=== PATIENT | female | born 1975 | race Two or more races ===

== ENCOUNTER 2022-07-07 12:12 | Inpatient (IN) | payer MEDICAID ==
[~2022-07-07] VITALS: Ht 167.6 cm; Wt 90.4 kg
[2022-07-07 12:42] LABS: Basophils # (auto) 0.1 10 ^3/uL (0-0.2); Eosinophils # (auto) 0.1 10 ^3/uL (0-0.8); Monocytes # (auto) 0.5 10 ^3/uL (0-1.3); Neutrophils # (auto) 6.1 10 ^3/uL (1.6-8.6); Nucleated Red Blood Cells % 0.2 %
[2022-07-07 12:43] LABS: Basophils % (auto) 1.1 % (0.0-2.0); Eosinophils % (auto) 0.6 % (0.0-7.0); Hematocrit 19.8 % (36.0-46.0); Lymphocytes # (auto) 2.4 10 ^3/uL (0.4-5.4); Lymphocytes % (auto) 26.1 % (10.0-50.0); Mean Corpuscular Hgb Conc. 27.7 g/dL (32.0-36.0); Mean Corpuscular Volume 57.7 fL (80.0-100.0); Monocytes % (auto) 5.3 % (0.0-12.0); Neutrophils % (auto) 66.9 % (37.0-80.0); Red Blood Cells 3.44 10^6/uL (4.0-5.20); White Blood Cell 9.2 10^3/uL (4.4-10.8)
[2022-07-07 12:56] LABS: Albumin 3.1 g/dL (3.4-5.0); BUN/Creatinine Ratio 16.4; Calcium 8.6 mg/dL (8.5-10.1); Potassium 4.3 mmol/L (3.5-5.1)
[2022-07-07 12:59] LABS: Bilirubin, Total 0.6 mg/dL (0.2-1.0)
[2022-07-07 13:33] LABS: Hemoglobin 5.5 g/dL (12.2-16.2)
[2022-07-07 13:34] LABS: Red Cell Distribution Width 21.3 % (11.8-14.3)
[2022-07-07] MEDS ORDERED: MORPHINE SULFATE INJ 2 MG/ml SYRG IV PRN (14:45)
[2022-07-07] MEDS ORDERED: ACETAMINOPHEN 325 MG TAB PO PRN (14:45)
[2022-07-07] MEDS ORDERED: PANTOPRAZOLE 40 MG/10 ML VIAL INJ IV ONE (14:45)
[2022-07-07] MEDS ORDERED: DEXTROSE (50%) 50ML SYRG IV PRN (14:45)
[2022-07-07] MEDS ORDERED: NITROGLYCERIN 0.4 MG SL TAB SL PRN (14:45)
[2022-07-07 15:25] LABS: Folate (Folic Acid) 22.94 ng/mL (5.38-24)
[2022-07-07] MEDS: SODIUM CHLORIDE 0.9% 1,000 ML IV SCH (15:59)
[2022-07-07] MEDS: InsuLIN REG 1unit/0.01ml Soln (100units/ml) SC SCH (18:01)
[2022-07-07] MEDS: ACCU-CHEK COMFORT CURVE STRIP VI SCH (18:02)
[2022-07-08] VITALS (8 sets, daily range): BP systolic 109–133; BP diastolic 48–84
[2022-07-08] MEDS: ACCU-CHEK COMFORT CURVE STRIP VI SCH ×5 (03:13→22:58)
[2022-07-08] MEDS: InsuLIN REG 1unit/0.01ml Soln (100units/ml) SC SCH ×5 (03:13→22:57)
[2022-07-08] MEDS ORDERED: ENOXAPARIN SOD 40 MG/0.4 ML SYRINGE SC SCH (10:00)
[2022-07-08] MEDS: SODIUM CHLORIDE 0.9% 1,000 ML IV SCH (10:41)
[2022-07-08] MEDS: PANTOPRAZOLE 40 MG/10 ML VIAL INJ IV SCH (12:48)
[2022-07-08 15:35] LABS: Basophils # (auto) 0.1 10 ^3/uL (0-0.2); Eosinophils # (auto) 0.1 10 ^3/uL (0-0.8); Hemoglobin 7.7 g/dL (12.2-16.2); Lymphocytes # (auto) 2.2 10 ^3/uL (0.4-5.4)
[2022-07-08 15:38] LABS: Basophils % (auto) 1.1 % (0.0-2.0); Hematocrit 26.2 % (36.0-46.0); Lymphocytes % (auto) 28.3 % (10.0-50.0); Mean Corpuscular Hemoglobin 18.7 pg (28.0-32.0); Mean Corpuscular Hgb Conc. 29.4 g/dL (32.0-36.0); Mean Corpuscular Volume 63.5 fL (80.0-100.0); Monocytes # (auto) 0.6 10 ^3/uL (0-1.3); Monocytes % (auto) 7.2 % (0.0-12.0); Neutrophils # (auto) 4.9 10 ^3/uL (1.6-8.6); Neutrophils % (auto) 62.4 % (37.0-80.0); Nucleated Red Blood Cells % 0.2 %; Red Blood Cells 4.12 10^6/uL (4.0-5.20); White Blood Cell 7.9 10^3/uL (4.4-10.8)
[2022-07-08 15:47] LABS: Red Cell Distribution Width 29.1 % (11.8-14.3)
[2022-07-08 15:52] LABS: Albumin 2.9 g/dL (3.4-5.0); Calcium 8.7 mg/dL (8.5-10.1); Potassium 4.2 mmol/L (3.5-5.1)
[2022-07-08 15:54] LABS: INR 0.96 (0.9-1.15); Partial Thromboplastin Time 23.8 sec (24.6-33.4)
[2022-07-08 15:55] LABS: BUN/Creatinine Ratio 13.5; Bilirubin, Total 0.8 mg/dL (0.2-1.0); Total Protein 6.9 g/dL (6.4-8.2)
[2022-07-08 18:04] LABS: % Iron Saturation 3.3 % (15-50)
[2022-07-08 18:10] LABS: Triglycerides 139 mg/dL (< 150)
[2022-07-08 18:17] LABS: Cholesterol 145 mg/dL (< 200); HDL Cholesterol 30 mg/dL (40-59); LDL Cholesterol 98 mg/dL (< 100)
[2022-07-09] MEDS: SODIUM CHLORIDE 0.9% 1,000 ML IV SCH ×2 (00:24→00:25)
[2022-07-09] MEDS: InsuLIN REG 1unit/0.01ml Soln (100units/ml) SC SCH ×4 (06:45→21:24)
[2022-07-09] MEDS: ACCU-CHEK COMFORT CURVE STRIP VI SCH ×4 (07:02→21:23)
[2022-07-09] MEDS: PANTOPRAZOLE 40 MG/10 ML VIAL INJ IV SCH (10:00)
[2022-07-09] MEDS: SODIUM FERR GLUC 62.5MG/5ML 125 MG in SODIUM CHL 0.9% 100 ML IV SCH (12:00)
[2022-07-09] MEDS: METOCLOPRAMIDE HCL 5MG/ml INJ 2ml VIAL IV ONE ×2 (13:30→16:29)
[2022-07-09 16:37] VITALS: BP 133/85
[2022-07-09] MEDS ORDERED: LIDOCAINE VISCOUS 2% 15ML UD ONE (17:45)
[2022-07-09] MEDS: MIDAZOLAM HCL 2MG/2ML 2ml VIAL (1mg/ml) ONE ×2 (18:29→18:32)
[2022-07-09] MEDS: fentaNYL CITRATE 100 MCG/2 ML VL ONE ×2 (18:29→18:32)
[2022-07-09] MEDS: diphenhdrAMINE HCL 50 MG/1 ML VL ONE ×2 (18:29→18:30)
[2022-07-09 20:00] VITALS: BP 134/80
[2022-07-09 22:00] VITALS: BP 134/80
[2022-07-10 05:00] VITALS: BP 120/72
[2022-07-10] MEDS: ACCU-CHEK COMFORT CURVE STRIP VI SCH ×2 (06:14→11:32)
[2022-07-10] MEDS: InsuLIN REG 1unit/0.01ml Soln (100units/ml) SC SCH ×2 (06:15→11:30)
[2022-07-10 08:00] VITALS: BP 134/80
[2022-07-10 09:00] VITALS: BP 140/81
[2022-07-10] MEDS: SODIUM CHLORIDE 0.9% 1,000 ML IV SCH (09:25)
[2022-07-10] MEDS ORDERED: FERR-7 PO (09:55)
[2022-07-10] MEDS ORDERED: PANT40T PO (09:55)
[2022-07-10] MEDS: PANTOPRAZOLE 40 MG/10 ML VIAL INJ IV SCH (10:43)
[2022-07-10 11:56] LABS: Basophils # (auto) 0.1 10 ^3/uL (0-0.2); Eosinophils # (auto) 0.2 10 ^3/uL (0-0.8); Hemoglobin 8.1 g/dL (12.2-16.2); Monocytes # (auto) 0.5 10 ^3/uL (0-1.3); Nucleated Red Blood Cells % 0.1 %; White Blood Cell 8.8 10^3/uL (4.4-10.8)
[2022-07-10 12:00] LABS: Basophils % (auto) 1.2 % (0.0-2.0); Eosinophils % (auto) 2.4 % (0.0-7.0); Hematocrit 28.7 % (36.0-46.0); Lymphocytes # (auto) 2.3 10 ^3/uL (0.4-5.4); Lymphocytes % (auto) 25.9 % (10.0-50.0); Mean Corpuscular Hgb Conc. 28.3 g/dL (32.0-36.0); Mean Corpuscular Volume 63.5 fL (80.0-100.0); Monocytes % (auto) 6.1 % (0.0-12.0); Neutrophils # (auto) 5.7 10 ^3/uL (1.6-8.6); Neutrophils % (auto) 64.4 % (37.0-80.0); Red Blood Cells 4.52 10^6/uL (4.0-5.20)
[2022-07-10] MEDS: SODIUM FERR GLUC 62.5MG/5ML 125 MG in SODIUM CHL 0.9% 100 ML IV SCH (12:00)
[2022-07-10 12:18] VITALS: BP 141/91
[2022-07-10 12:28] LABS: Red Cell Distribution Width 29.8 % (11.8-14.3)
== END 2022-07-10 12:48 | disposition home or self-care (01) | DRG 198 ==
LOC: ER 12:12 → TELE 14:44 → TELE-WESTW 07-09 11:00
PROVIDERS: ADMIT Nurse Practitioner Family; ATTEND Family Medicine
PROC: 30233N1 Transfusion of Nonautologous Red Blood Cells into Peripheral Vein, Percutaneous Approach (ICD-10-PCS; principal; 2022-07-08)
PROC: 0DB98ZX Excision of Duodenum, Via Natural or Artificial Opening Endoscopic, Diagnostic (ICD-10-PCS; 2022-07-09)
PROC: 0DB68ZX Excision of Stomach, Via Natural or Artificial Opening Endoscopic, Diagnostic (ICD-10-PCS; 2022-07-09)
DX: I24.8 Other forms of acute ischemic heart disease (principal); E46 Unspecified protein-calorie malnutrition; D50.9 Iron deficiency anemia, unspecified; E11.9 Type 2 diabetes mellitus without complications; E66.01 Morbid (severe) obesity due to excess calories; K29.70 Gastritis, unspecified, without bleeding; R07.89 Other chest pain; K44.9 Diaphragmatic hernia without obstruction or gangrene; Z90.49 Acquired absence of other specified parts of digestive tract; Z68.32 Body mass index [BMI] 32.0-32.9, adult; Z79.84 Long term (current) use of oral hypoglycemic drugs
CPT/HCPCS: 36415; 71045; 80053; 80061; 82607; 82746; 82962; 83036; 83540; 83550; 83690; 83880; 84443; 84484; 84702; 85025; 85379; 85610; 85730; 86850; 86900; 86901; 86920; 87426; 93005; 93306; 96361; 96374; C9113; G0378; J1815; J2250

== ENCOUNTER 2024-08-31 00:10 | Inpatient (IN) | payer MEDICAID, OTHER ==
[2024-08-31] VITALS (15 sets, daily range): BP systolic 117–148; BP diastolic 75–95; PULSE 90–105; RESP 16–28; TEMP 97.4–98.6; O2SAT 92–97
[~2024-08-31] VITALS: Ht 170.2 cm; Wt 94.4 kg
[~2024-08-31 00:10] MED LIST: FERR-7 PO; PANT40T PO
[2024-08-31 00:58] LABS: Basophils # (auto) 0.1 10 ^3/uL (0-0.2); Basophils % (auto) 0.6 % (0.0-2.0); Eosinophils # (auto) 0.1 10 ^3/uL (0-0.8); Eosinophils % (auto) 0.6 % (0.0-7.0); Hematocrit 41.6 % (36.0-46.0); Hemoglobin 13.9 g/dL (12.2-16.2); Lymphocytes # (auto) 3.1 10 ^3/uL (0.4-5.4); Lymphocytes % (auto) 22.6 % (10.0-50.0); Mean Corpuscular Hemoglobin 29.1 pg (28.0-32.0); Mean Corpuscular Hgb Conc. 33.5 g/dL (32.0-36.0); Monocytes # (auto) 0.9 10 ^3/uL (0-1.3); Monocytes % (auto) 6.9 % (0.0-12.0); Neutrophils # (auto) 9.4 10 ^3/uL (1.6-8.6); Neutrophils % (auto) 69.3 % (37.0-80.0); Nucleated Red Blood Cells % 0.1 %; Platelet Count (auto) 223 10^3/uL (140-450); Red Blood Cells 4.78 10^6/uL (4.0-5.20); Red Cell Distribution Width 14.3 % (11.8-14.3); White Blood Cell 13.6 10^3/uL (4.4-10.8)
--- NOTE | 2024-08-31 01:03 | ED.PDOC ---
HPI Comments 49-year-old female came to the emergency room via EMS for chest pains. Patient has history of hypertension and diabetes, states for the past 2 days, she has been having intermittent episodes of substernal chest pains, burning, non radiating, aggravated by movements. Blood sugar on scene was 318, with a blood pressure of 169/113 mmHg. Denies any shortness of breath. Patient was given 0.8 Nitroglycerin and 324 aspirin while en route to the ER. Upon arrival, minimal chest pains were noted. Chief Complaint: Chest Pain Time Seen by MD: 01:03 Reviewed Notes: Nurses Notes Allergies: Coded Allergies: Penicillins (Verified Allergy, Unknown, 08/31/24) Home Meds Reported Medications Sitagliptin-Metformin Hcl (JANUMET XR) 1 Tab Tab, 1 TAB PO, TAB 08/31/24 Information Source: Patient Mode of Arrival: EMS Severity: Moderate Timing: Hours Review of Systems REVIEW OF SYSTEMS: No fever, no chills, or fatigue HEENT: No sore throat, no earache, no congestion, no neck pain. Cardiac: (+) chest pain. No palpitations. Lungs: No shortness of breath, no cough. GI: No nausea, no vomiting, no diarrhea, no constipation, no abdominal pain : No dysuria, frequency, or urgency. No hematuria. Musculoskeletal: No joint pain , no joint swelling, no extremity edema. Skin: No rash, no itching. Neuro: No headache, no dizziness, no weakness Vital Signs Vital Signs Date Time Temp Pulse Resp B/P (MAP) Pulse Ox O2 Delivery O2 Flow Rate FiO2 08/31/24 02:00 99 27 134/83 08/31/24 01:26 98.4 93 98.4 08/31/24 01:26 Room Air* 0 21 Physical Exam General: Awake, alert and oriented. No acute distress. Skin: Skin in warm, dry and intact. Appropriate color for ethnicity. Nailbeds pink with no cyanosis. HEENT: The head is normocephalic and atraumatic. Conjunctivae are clear without exudates or hemorrhage. Sclera is non-icteric. EOM are intact. No signs of nystagmus. Eyelids are normal in appearance without swelling or lesions. Oral mucosa is pink and moist Neck: The neck is supple with normal range of motion. No JVD. Cardiac: Heart rate and rhythm are normal. No murmurs, gallops, or rubs are auscultated. Respiratory: No signs of respiratory distress. Lung sounds are clear in all lobes bilaterally without rales, ronchi, or wheezes. Abdominal: Abdomen is soft, non-tender without distention. Bowel sounds are present and normoactive in all four quadrants. Extremities: Upper and lower extremities are atraumatic in appearance without deformity or edema. Neurological: The patient is awake, alert and oriented to person, place, and time with normal speech. Speech is clear. There is no facial asymmetry. Psychiatric: Appropriate mood and affect. Good judgement and insight. No visual or auditory hallucinations. Past Medical History PAST MEDICAL HISTORY: DM, HTN Surgical History: Denies all surgeries BACON SLICER History: Denies all BACON SLICER Hx Family History Family History: Reviewed,noncontributory to illness Social History Smoker: Non-Smoker Alcohol: Denies ETOH Use Drugs: Denies Drug Use Lives In: Home Was a procedure done? Was a procedure done?: No CP Differential Dx Differential Diagnosis: Angina, Anxiety / Panic Attack, Electrolyte Disorder, Pacemaker Malfunction Differential Diagnosis: Angina, Chest Wall Pain, Costochondritis, Esophageal reflux/spasm, Gastritis, Myocardial Infarction X-Ray, Labs, Meds, VS Vital Signs Date Time Temp Pulse Resp B/P (MAP) Pulse Ox O2 Delivery O2 Flow Rate FiO2 08/31/24 02:00 99 27 134/83 08/31/24 01:35 98 23 128/85 08/31/24 01:26 98.4 97 28 128/85 (99) 93 98.4 08/31/24 01:26 97 08/31/24 01:26 97 28 93 Room Air* 0 21 08/31/24 01:13 101 08/31/24 01:11 100 16 115/83 (94) 95 08/31/24 00:14 108 08/31/24 00:10 98.5 113 16 130/87 (101) 95 Lab Test 08/31/24 01:17 08/31/24 00:30 Range/Units Troponin I High Sensitivity 1395 *H 1405 *H </=34 ng/L Triglycerides Level 232 H < 150 mg/dL Cholesterol Level 151 < 200 mg/dL LDL Cholesterol 92 < 100 mg/dL HDL Cholesterol 27 L 40-59 mg/dL White Blood Count 13.6 H 4.4-10.8 10^3/uL Red Blood Count 4.78 4.0-5.20 10^6/uL Hemoglobin 13.9 12.2-16.2 g/dL Hematocrit 41.6 36.0-46.0 % Mean Corpuscular Volume 87.0 80.0-100.0 fL Mean Corpuscular Hemoglobin 29.1 28.0-32.0 pg Mean Corpuscular Hemoglobin Concent 33.5 32.0-36.0 g/dL Red Cell Distribution Width 14.3 11.8-14.3 % Platelet Count 223 140-450 10^3/uL Mean Platelet Volume 11.1 H 6.9-10.8 fL Neutrophils (%) (Auto) 69.3 37.0-80.0 % Lymphocytes (%) (Auto) 22.6 10.0-50.0 % Monocytes (%) (Auto) 6.9 0.0-12.0 % Eosinophils (%) (Auto) 0.6 0.0-7.0 % Basophils (%) (Auto) 0.6 0.0-2.0 % Neutrophils # (Auto) 9.4 H 1.6-8.6 10 ^3/uL Lymphocytes # (Auto) 3.1 0.4-5.4 10 ^3/uL Monocytes # (Auto) 0.9 0-1.3 10 ^3/uL Eosinophils # (Auto) 0.1 0-0.8 10 ^3/uL Basophils # (Auto) 0.1 0-0.2 10 ^3/uL Nucleated Red Blood Cells 0.1 % Prothrombin Time 10.3 9.3-11.8 sec Prothrombin Time INR 0.97 0.9-1.15 Activated Partial Thromboplast Time 27.1 24.5-34.5 SEC Sodium Level 136 136-145 mmol/L Potassium Level 4.1 3.5-5.1 mmol/L Chloride Level 105 98-107 mmol/L Carbon Dioxide Level 20 20-31 mmol/L Anion Gap 11 5-15 Blood Urea Nitrogen 12 9-23 mg/dL Creatinine 0.64 0.550-1.02 mg/dL Glomerular Filtration Rate Calc 110 >90 mL/min BUN/Creatinine Ratio 18.8 10.0-20.0 Serum Glucose 262 H 74-106 mg/dL Hemoglobin A1c 9.1 H <5.7 % A1C Calcium Level 9.8 8.7-10.4 mg/dL Magnesium Level 1.9 1.6-2.6 mg/dL Total Bilirubin 0.6 0.2-1.0 mg/dL Aspartate Amino Transferase (AST) 22 13-40 U/L Alanine Aminotransferase (ALT) 22 7-40 U/L Alkaline Phosphatase 95 46-116 U/L B-Type Natriuretic Peptide 115.37 0-100 pg/mL Total Protein 7.3 5.7-8.2 g/dL Albumin 4.6 3.2-4.8 g/dL Thyroid Stimulating Hormone (TSH) 2.43 0.55-4.78 uIU/mL Beta HCG, Quantitative 1.8 1.5-4.2 mIU/mL Current Medications Medications (Trade) Dose Ordered Sig/Michael Route Start Time Stop Time Status Last Admin Morphine Sulfate 2 mg ONCE ONCE IV 08/31/24 01:30 08/31/24 01:31 DC 08/31/24 01:35 Sodium Chloride 1,000 ml @ 1,000 mls/hr Q1H ONCE IV 08/31/24 01:30 08/31/24 02:29 DC 08/31/24 01:33 Time of 1ST Reevaluation: 00:56 Reevaluation 1ST: Unchanged Patient Education/Counseling: Diagnosis, Treatment Family Education/Counseling: No Family Present Departure 1 Departure Time of Disposition: 18:46 Impression: Primary Impression: NSTEMI (non-ST elevated myocardial infarction) Disposition: 09 ADMITTED INPATIENT Condition: Stable Comments 49-year-old female with NSTEMI. Patient is stabilized in the emergency department, heparin bolus initiated. Patient admitted for further treatment, evaluation and monitoring. Critical Care Note Critical Care Time?: Yes (35 min-critical care time only) Critical care comment: Active chest pain Stability Stability form required: No Heart Score Heart Score: Heart Score Response (Comments) Value History Slightly Suspicious 0 EKG Normal 0 Age 45-64 1 Risk Factors 1 or 2 risk factors 1 Troponin Normal limit 0 Total 2 I personally scribed for ROBBIE BOX MD ([email or web address]) on 08/31/24 at 01:03. Electronically submitted by [employer] ([facility]). I personally scribed for ROBBIE BOX MD ([email or web address]) on 08/31/24 at 01:05. Electronically submitted by [employer] ([email or web address]). ROBBIE BOX MD Aug 31, 2024 01:03
[2024-08-31 01:13] LABS: Alanine Aminotransferase 22 U/L (7-40); Albumin 4.6 g/dL (3.2-4.8); Alkaline Phosphatase 95 U/L (46-116); Anion Gap 11 (5-15); Aspartate Aminotransferase 22 U/L (13-40); BUN/Creatinine Ratio 18.8 (10.0-20.0); Bilirubin, Total 0.6 mg/dL (0.2-1.0); Blood Urea Nitrogen 12 mg/dL (9-23); Calcium 9.8 mg/dL (8.7-10.4); Carbon Dioxide 20 mmol/L (20-31); Chloride 105 mmol/L (98-107); Potassium 4.1 mmol/L (3.5-5.1); Total Protein 7.3 g/dL (5.7-8.2)
[2024-08-31 01:17] LABS: Glucose 262 mg/dL (74-106); Sodium 136 mmol/L (136-145)
[2024-08-31] MEDS: SODIUM CHLORIDE 0.9% 1,000 ML IV ONE (01:33)
[2024-08-31] MEDS: MORPHINE SULFATE INJ 2 MG/ml SYRG IV ONE (01:35)
[2024-08-31 01:43] LABS: INR 0.97 (0.9-1.15); Prothrombin Time 10.3 sec (9.3-11.8)
--- NOTE | 2024-08-31 01:52 | DVH ---
CHEST RADIOGRAPH Indication: cp Technique: Single frontal view of the chest was obtained COMPARISON: None FINDINGS: Lines and Tubes: None Lungs: Clear Pleura: No effusion. No pneumothorax. Cardiomediastinal contours: Unremarkable Bones: Unremarkable IMPRESSION: No abnormality demonstrated.
[2024-08-31] MEDS ORDERED: METOPROLOL SUCCINATE XL 50 MG TAB PO ONE (02:30)
[2024-08-31] MEDS ORDERED: NITROGLYCERIN 0.4 MG SL TAB SL PRN (02:30)
[2024-08-31] MEDS ORDERED: MORPHINE SULFATE INJ 2 MG/ml SYRG IV PRN (02:30)
--- NOTE | 2024-08-31 02:44 | DVHHPRES ---
History of Present Illness Resident Creating Document: CECELIA CHANDLER RESDIENT History of Present Illness This is a 49-year-old obese female with past medical history of diabetes came to the hospital due to chest pain functional class 3 since 2 days. Per patient she has constant and localized central chest pain, pressure-like, 8/10 in intensity, worsen with physical activity, improves with resting but do not relieves completely. She also reports shortness of breaths. She denies fever, cough, nausea, vomiting, abdominal pain, dysuria, diarrhea, constipation or any recent sick contact. PMHx: Diabetes and history of anemia (iron-deficiency type) PSHx: Appendectomy Family history: Significant for premature coronary artery disease in dad and grandmother Social history: Lives with the family at home, denies smoking or any other drug use. Has secondhand smoking exposure (hausband and dad smokes cigarettes). Home medication: Lisinopril 2.5 mg, Janumet (sitagliptin/metformin) Allergic history: Penicillin Review of Systems Review of Systems General: patient denies fever, fatigue, weaknes, sweating, any recent changes in appetite and weight HEENT: No headaches, visiual changes, hearing loss, tinnitus, nasal congestion and discharge, and sore throat. Cardiovascular: Reports chest pain Respiratory: Reports shortness of breaths Gastrointestinal: Denies nausea, vomiting, dysphagia, odynophagia, heartburn, abdominal pain, flatulence, bloating, diarrhea, constipation, change in stool, or blood in stool. Genitourinary: No dysuria, hematuria, discharge, frequency, urgency, nocturia, incontinence, and urinary retention. Endocrine: No heat or cold intolerance, polydipsia, polyuria, and polyphagia. Neurological: No dizziness, extremity weakness and numbness, tremors, gait disturbance, seizures, and memory impairment. Psychiatric: Denies depression, anxiety,or insomnia. Musculoskeletal: Denies neck pain, stiffness and swelling, back pain, muscle weakness, joint pain, stiffness, swelling, or limited range of motion. Skin: No rashes, itching, skin lesion, changes in hair, nail, skin texture and breast. Hematologic/Lymphatic: Denies easy bruising, bleeding tendencies, or lymph node enlargement. Allergies: Coded Allergies: Penicillins (Verified Allergy, Unknown, 08/31/24) Medications Current Medications Medications Dose Ordered Sig/Michael Route Start Time Stop Time Status Last Admin Dose Admin Sodium Chloride 10 ml Q8HR IV 08/31/24 06:00 Nitroglycerin 0.4 mg Q5MINP PRN SL 08/31/24 02:30 UNV Morphine Sulfate 2 mg Q30M PRN IV 08/31/24 02:30 UNV Aspirin 81 mg DAILY PO 08/31/24 10:00 UNV Metoprolol Succinate 50 mg DAILY PO 08/31/24 10:00 UNV Lisinopril 2.5 mg DAILY PO 08/31/24 10:00 UNV Pantoprazole Sodium 40 mg DAILY IV 09/01/24 10:00 UNV Heparin Sodium/ Dextrose 250 ml @ 10.614 mls/ hr [id number] IV 08/31/24 02:30 UNV Exam Vital Signs Vital Signs Date Time Temp Pulse Resp B/P (MAP) Pulse Ox O2 Delivery O2 Flow Rate FiO2 08/31/24 02:00 99 27 134/83 08/31/24 01:26 98.4 93 98.4 08/31/24 01:26 Room Air* 0 21 Exam General Appearance: Alert, Oriented X3, Cooperative, No acute distress HEENT: Atraumatic, PERRLA, EOMI, Mucous membrane moist/pink Respiratory: Clear to auscultation, Normal air movement Cardiovascular: Regular rate, Normal S1, Normal S2, No murmurs, no chest wall tenderness Abdominal: Normal bowel sounds, Soft, No tenderness, No hepatospenomegaly, No masses Extremities: No clubbing, No cyanosis, No edema, Normal pulses, No tenderness/swelling Skin: No rashes, No breakdown, No significant lesion Neuro: Normal gait, Normal speech, Strength at 5/5 X4 ext, Normal tone, Sensation intact, Cranial nerves 3-12 NL, Reflexes 2+ Psych/Mental Status: Mental status NL, Mood NL Labs/Xrays Labs Test 08/31/24 01:17 08/31/24 00:30 Range/Units Troponin I High Sensitivity 1395 *H </=34 ng/L White Blood Count 13.6 H 4.4-10.8 10^3/uL Red Blood Count 4.78 4.0-5.20 10^6/uL Hemoglobin 13.9 12.2-16.2 g/dL Hematocrit 41.6 36.0-46.0 % Mean Corpuscular Volume 87.0 80.0-100.0 fL Mean Corpuscular Hemoglobin 29.1 28.0-32.0 pg Mean Corpuscular Hemoglobin Concent 33.5 32.0-36.0 g/dL Red Cell Distribution Width 14.3 11.8-14.3 % Platelet Count 223 140-450 10^3/uL Mean Platelet Volume 11.1 H 6.9-10.8 fL Neutrophils (%) (Auto) 69.3 37.0-80.0 % Lymphocytes (%) (Auto) 22.6 10.0-50.0 % Monocytes (%) (Auto) 6.9 0.0-12.0 % Eosinophils (%) (Auto) 0.6 0.0-7.0 % Basophils (%) (Auto) 0.6 0.0-2.0 % Neutrophils # (Auto) 9.4 H 1.6-8.6 10 ^3/uL Lymphocytes # (Auto) 3.1 0.4-5.4 10 ^3/uL Monocytes # (Auto) 0.9 0-1.3 10 ^3/uL Eosinophils # (Auto) 0.1 0-0.8 10 ^3/uL Basophils # (Auto) 0.1 0-0.2 10 ^3/uL Nucleated Red Blood Cells 0.1 % Prothrombin Time 10.3 9.3-11.8 sec Prothrombin Time INR 0.97 0.9-1.15 Activated Partial Thromboplast Time 27.1 24.5-34.5 SEC Sodium Level 136 136-145 mmol/L Potassium Level 4.1 3.5-5.1 mmol/L Chloride Level 105 98-107 mmol/L Carbon Dioxide Level 20 20-31 mmol/L Anion Gap 11 5-15 Blood Urea Nitrogen 12 9-23 mg/dL Creatinine 0.64 0.550-1.02 mg/dL Glomerular Filtration Rate Calc 110 >90 mL/min BUN/Creatinine Ratio 18.8 10.0-20.0 Serum Glucose 262 H 74-106 mg/dL Calcium Level 9.8 8.7-10.4 mg/dL Magnesium Level 1.9 1.6-2.6 mg/dL Total Bilirubin 0.6 0.2-1.0 mg/dL Aspartate Amino Transferase (AST) 22 13-40 U/L Alanine Aminotransferase (ALT) 22 7-40 U/L Alkaline Phosphatase 95 46-116 U/L B-Type Natriuretic Peptide 115.37 0-100 pg/mL Total Protein 7.3 5.7-8.2 g/dL Albumin 4.6 3.2-4.8 g/dL Assessment/Plan Assessment/Plan NSTEMI probable type 1 (OLIVIA: 2, LISA: 74) Diabetes type 2 SIRS positive LISA score 74 points, and OLIVIA score 2 points EKGs shows QS wave in inferior leads, not present on EKG from 2022 Echocardiogram Consult cardiology Aspirin Metoprolol Lisinopril Heparin drip Morphine Insulin, moderate SS Obesity Hypomagnesemia Premenopause Secondhand smoking History of iron deficiency anemia - Resolved DIET: NPO from midnight DVT PROPHYLAXIS: On heparin drip GI PROPHYLAXIS:: Protonix CODE STATUS: Goal of care discussed for more than 18 minutes, full code DISPOSITION: Telemetry Patient's status and paln discussed with the patient. Case discussed with Dr. Shanks. critical care time 90 mins Plan discussed with: Patient, Other (RN) My Orders Orders - CECELIA CHANDLER RESDIKATHY Procedure Category Date Status Time Admit ADMIT 08/31/24 Transmitted 02:20 Code Status CODE 08/31/24 Transmitted 02:20 Review Orders With [facility] 08/31/24 In Process Adm. 02:20 Notify Of Changes [facility] 08/31/24 In Process From Base 02:20 Advance Directive [facility] 08/31/24 In Process 02:20 Patient Condition ORDERS 08/31/24 Transmitted 02:20 Allergies [facility] 08/31/24 In Process 02:20 Nitroglycerin [facility] 08/31/24 Logged Sublingual (Ntrostat 02:30 Morphine Sulfate PHA 08/31/24 Logged Injection 02:30 Oxygen By Nasal RT 08/31/24 Transmitted Cannula 02:20 Stat Ekg For Chest [facility] 08/31/24 In Process Pain 02:20 Notify Of Changes [facility] 08/31/24 In Process From Base 02:20 Product Mgmt Dev Manager For [facility] 08/31/24 In Process 24 Hours 02:20 Emergency Dysrhythmia [facility] 08/31/24 In Process Protocol 02:20 Rhythm Strips Once [facility] 08/31/24 In Process Every Shift 02:20 Complete Blood Count LAB 08/31/24 Logged 02:20 Comprehensive LAB 08/31/24 Logged Metabolic Panel 02:20 Drug Screen LAB 08/31/24 Logged 02:20 Urine Dip ED NURSING 08/31/24 Transmitted * Cardiology Consult CONS 08/31/24 Transmitted 02:20 Thyroid Stimulating LAB 08/31/24 In Process Hormone 02:20 Hemoglobin A1c LAB 08/31/24 In Process 02:20 Lipid Panel LAB 08/31/24 Logged 02:20 Aspirin Tablet PHA 08/31/24 Logged 10:00 Metoprolol Xl PHA 08/31/24 Logged Succinate (Toprol Xl) 10:00 Metoprolol Xl PHA 08/31/24 Logged Succinate (Toprol Xl) 02:30 Lisinopril Tablet PHA 08/31/24 Logged (Zestril Tablet) 10:00 Lisinopril Tablet PHA 08/31/24 Logged (Zestril Tablet) 02:30 Pantoprazole PHA 09/01/24 Logged (Protonix) 10:00 Pantoprazole PHA 08/31/24 Logged (Protonix) 02:30 Platelet Monitoring RHONDA 08/31/24 In Process 02:20 Heparin Per RHONDA 08/31/24 In Process Standardized Proce 02:20 Discontinue All Im RHONDA 08/31/24 In Process Injections 02:20 Heparin Drip/D5w PHA 08/31/24 Logged 100units/Ml 02:30 Magnesium Valentin PHA 08/31/24 Transmitted 02:45 Date of Service: Aug 31, 2024 Billing Provider: TRICIA SHANKS MD Common Visit Codes: [id number] CARE 30-74 MIN, [id number] CARE-EACH +30MIN CECELIA CHANDLER RESDIENT Aug 31, 2024 02:44 MACEY SILVERIO RESIDENT Aug 31, 2024 03:28 TRICAI SHANKS MD Aug 31, 2024 17:08
[2024-08-31] MEDS ORDERED: DEXTROSE (50%) 50ML SYRG IV PRN (02:45)
[2024-08-31] MEDS: LISINOPRIL 5 MG TAB PO ONE (02:54)
[2024-08-31 02:56] LABS: LDL Cholesterol 92 mg/dL (< 100)
[2024-08-31 02:57] LABS: Cholesterol 151 mg/dL (< 200)
[2024-08-31] MEDS: PANTOPRAZOLE 40 MG/10 ML VIAL INJ IV ONE (03:04)
[2024-08-31] MEDS: MAGNESIUM SULFATE 1GM/100ML 100 ML IV ONE (03:05)
[2024-08-31 03:08] LABS: HDL Cholesterol 27 mg/dL (40-59); Triglycerides 232 mg/dL (< 150)
[2024-08-31] MEDS: METOPROLOL SUCCINATE XL 50 MG TAB PO ONE (03:22)
[2024-08-31] MEDS: HEPARIN SODIUM (PORCINE) 5000 UNITS/ML 1ML VIAL IV ONE ×2 (03:23→12:16)
[2024-08-31 04:01] LABS: Basophils # (auto) 0.1 10 ^3/uL (0-0.2); Basophils % (auto) 0.4 % (0.0-2.0); Eosinophils # (auto) 0.1 10 ^3/uL (0-0.8); Eosinophils % (auto) 0.7 % (0.0-7.0); Hematocrit 40.3 % (36.0-46.0); Hemoglobin 13.6 g/dL (12.2-16.2); Lymphocytes # (auto) 3.6 10 ^3/uL (0.4-5.4); Lymphocytes % (auto) 28.5 % (10.0-50.0); Mean Corpuscular Hemoglobin 29.3 pg (28.0-32.0); Mean Corpuscular Hgb Conc. 33.6 g/dL (32.0-36.0); Mean Corpuscular Volume 87.1 fL (80.0-100.0); Monocytes # (auto) 0.8 10 ^3/uL (0-1.3); Monocytes % (auto) 6.3 % (0.0-12.0); Neutrophils # (auto) 8.2 10 ^3/uL (1.6-8.6); Neutrophils % (auto) 64.1 % (37.0-80.0); Platelet Count (auto) 198 10^3/uL (140-450); Red Blood Cells 4.63 10^6/uL (4.0-5.20); Red Cell Distribution Width 14.6 % (11.8-14.3); White Blood Cell 12.7 10^3/uL (4.4-10.8)
[2024-08-31 04:14] LABS: Alanine Aminotransferase 19 U/L (7-40); Albumin 4.3 g/dL (3.2-4.8); Alkaline Phosphatase 91 U/L (46-116); Anion Gap 10 (5-15); Aspartate Aminotransferase 18 U/L (13-40); BUN/Creatinine Ratio 21.2 (10.0-20.0); Bilirubin, Total 0.5 mg/dL (0.2-1.0); Blood Urea Nitrogen 11 mg/dL (9-23); Calcium 9.3 mg/dL (8.7-10.4); Carbon Dioxide 21 mmol/L (20-31); Chloride 106 mmol/L (98-107); Potassium 3.8 mmol/L (3.5-5.1); Sodium 137 mmol/L (136-145); Total Protein 6.9 g/dL (5.7-8.2)
[2024-08-31] MEDS: ATORVASTATIN 20 MG TAB PO ONE (04:18)
[2024-08-31 04:20] LABS: Glucose 218 mg/dL (74-106)
[2024-08-31] MEDS: HEPARIN DRIP/D5W 100UNITS/ML 250 ML IV SCH ×2 (04:21→12:18)
--- NOTE | 2024-08-31 04:40 | ECG ---
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
--- NOTE | 2024-08-31 04:40 | ECG ---
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
--- NOTE | 2024-08-31 04:40 | ECG ---
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
[2024-08-31] MEDS ORDERED: SITA50TA28 PO (04:51)
[2024-08-31] MEDS: ACCU-CHEK COMFORT CURVE STRIP VI SCH (06:18)
[2024-08-31] MEDS: SODIUM CHLOR 0.9% PF (SALINE LOCK) 10ML VIAL/SYR IV SCH (06:19)
[2024-08-31] MEDS: InsuLIN REG 1unit/0.01ml Soln (100units/ml) SC SCH ×2 (06:19→21:51)
--- NOTE | 2024-08-31 09:12 | DVHINCON2 ---
Date Seen: Aug 31, 2024 Referring Physician MD Thai resident Reason for Consultation NSTEMI History of Present Illness This is a 49-year-old female patient who presents to the emergency room with chief complaint of chest pain. The patient reports that the chest pain began on 08/28/24 at approximately 11:00 p.m. while she was sleeping. She describes the pain as unprovoked, constant, pressure-like in nature, substernal with radiation to her left chest. Associated symptoms include shortness of breath. She denies any alleviating or aggravating factors. The patient called EMS and the patient was brought to emergency room for further evaluation. Initial twelve lead electrocardiogram reveals sinus tachycardia with Q-waves seen in inferior leads. Initial troponin level of 1405ng/L with rising up trend thereafter and current peak level at 1749ng/L. Significant past medical history includes type 2 diabetes mellitus, anemia, and obesity. The patient also reports a significant family history of coronary artery disease including her father, paternal grandmother, and aunts all who have had a myocardial infarction. Past Medical History Past medical history reviewed. No other significant than mentioned above. Past Surgical History Appendectomy Family History: Cerebrovascular accident (CVA) G8 FATHER Family History Family history reviewed. Social History Denies the use of tobacco, alcohol or illicit drugs. Allergies: Coded Allergies: Penicillins (Verified Allergy, Unknown, 08/31/24) Home Meds Reported Medications Sitagliptin-Metformin Hcl (JANUMET XR) 1 Tab Tab, 1 TAB PO, TAB 08/31/24 Home Meds Home medications reviewed. Current Medications Current Medications Medications (Trade) Dose Ordered Sig/Michael Route PRN Reason Start Time Stop Time Status Last Admin Sodium Chloride (Saline Lock Ns) 10 ml Q8HR IV 08/31/24 06:00 08/31/24 06:19 Nitroglycerin (Ntrostat Sublingual) 0.4 mg Q5MINP PRN SL FOR CHEST PAIN 08/31/24 02:30 Morphine Sulfate 2 mg Q30M PRN IV FOR CHEST PAIN 08/31/24 02:30 Aspirin 81 mg DAILY PO 08/31/24 10:00 Metoprolol Succinate (Toprol Xl) 50 mg DAILY PO 09/01/24 10:00 Lisinopril (Zestril Tablet) 2.5 mg DAILY PO 09/01/24 10:00 Pantoprazole Sodium (Protonix) 40 mg DAILY IV 09/01/24 10:00 Heparin Sodium/ Dextrose 250 ml @ 9 mls/hr Q24H IV 08/31/24 03:00 08/31/24 04:21 Diagnostic Test (Pha) (Accu-Chek Comfort Curve T) 1 strip ACHS 08/31/24 07:00 08/31/24 06:18 Insulin Human Regular (InsuLIN R) HS SC 08/31/24 22:00 Insulin Human Regular (InsuLIN R) AC SC 08/31/24 07:00 08/31/24 06:19 Dextrose 50 ml UD PRN IV Blood Sugar LESS THAN 60 08/31/24 02:45 Atorvastatin Calcium (Lipitor) 40 mg HS PO 08/31/24 22:00 Review of Systems Constitutional: No symptom reported Ears, Nose, & Throat: No symptom reported Eyes: No symptom reported Neurological: No symptoms reported Pulmonary/Respiratory: Shortness of breath Cardiovascular: Chest pain Gastrointestinal: No symptom reported Genitourinary: No symptom reported Musculoskeletal: No symptom reported Skin: No symptom reported Psychiatric: No symptom reported Endocrine: No symptom reported Hematologic/Lymphatic: No symptom reported Vital Signs Vital Signs Date Time Temp Pulse Resp B/P (MAP) Pulse Ox O2 Delivery O2 Flow Rate FiO2 08/31/24 08:25 98.6 90 20 148/91 (110) 92 98.6 08/31/24 03:55 Room Air* 0 21 Physical Exam General Appearance: Cooperative. Obese Pulmonary/Respiratory: Clear, bilateral breaths sounds. Cardiovascular/Chest: Regular rate and rhythm. Peripheral Pulses: 2+ Radial (R). 2+ Radial (L). 2+ Pedal (R). 2+ Pedal (L) Abdominal Exam: Normal bowel sounds. Ankle Exam: Negative ankle edema Lower extremities: Negative lower extremity edema Neuro/Mental Status: A/OX4, coherent. Thoughts/Psych: Normal thought pattern. Appropriate mood and affect. Good judgment and insight. Appearance: No acute distress. Skin Exam: Normal inspection. Normal color. Warm and dry. Labs/Diagnostic Data Labs Test 08/31/24 08:48 08/31/24 06:06 08/31/24 03:36 08/31/24 01:17 Range/Units POC Glucose 199 H 70-106 mg/dl White Blood Count 12.7 H 4.4-10.8 10^3/uL Red Blood Count 4.63 4.0-5.20 10^6/uL Hemoglobin 13.6 12.2-16.2 g/dL Hematocrit 40.3 36.0-46.0 % Mean Corpuscular Volume 87.1 80.0-100.0 fL Mean Corpuscular Hemoglobin 29.3 28.0-32.0 pg Mean Corpuscular Hemoglobin Concent 33.6 32.0-36.0 g/dL Red Cell Distribution Width 14.6 H 11.8-14.3 % Platelet Count 198 140-450 10^3/uL Mean Platelet Volume 10.9 H 6.9-10.8 fL Neutrophils (%) (Auto) 64.1 37.0-80.0 % Lymphocytes (%) (Auto) 28.5 10.0-50.0 % Monocytes (%) (Auto) 6.3 0.0-12.0 % Eosinophils (%) (Auto) 0.7 0.0-7.0 % Basophils (%) (Auto) 0.4 0.0-2.0 % Neutrophils # (Auto) 8.2 1.6-8.6 10 ^3/uL Lymphocytes # (Auto) 3.6 0.4-5.4 10 ^3/uL Monocytes # (Auto) 0.8 0-1.3 10 ^3/uL Eosinophils # (Auto) 0.1 0-0.8 10 ^3/uL Basophils # (Auto) 0.1 0-0.2 10 ^3/uL Nucleated Red Blood Cells 0.0 % Sodium Level 137 136-145 mmol/L Potassium Level 3.8 3.5-5.1 mmol/L Chloride Level 106 98-107 mmol/L Carbon Dioxide Level 21 20-31 mmol/L Anion Gap 10 5-15 Blood Urea Nitrogen 11 9-23 mg/dL Creatinine 0.52 L 0.550-1.02 mg/dL Glomerular Filtration Rate Calc 115 >90 mL/min BUN/Creatinine Ratio 21.2 H 10.0-20.0 Serum Glucose 218 H 74-106 mg/dL Calcium Level 9.3 8.7-10.4 mg/dL Total Bilirubin 0.5 0.2-1.0 mg/dL Aspartate Amino Transferase (AST) 18 13-40 U/L Alanine Aminotransferase (ALT) 19 7-40 U/L Alkaline Phosphatase 91 46-116 U/L Total Protein 6.9 5.7-8.2 g/dL Albumin 4.3 3.2-4.8 g/dL Triglycerides Level 232 H < 150 mg/dL Cholesterol Level 151 < 200 mg/dL LDL Cholesterol 92 < 100 mg/dL HDL Cholesterol 27 L 40-59 mg/dL Test 08/31/24 00:30 Range/Units Prothrombin Time 10.3 9.3-11.8 sec Prothrombin Time INR 0.97 0.9-1.15 Activated Partial Thromboplast Time 27.1 24.5-34.5 SEC Hemoglobin A1c 9.1 H <5.7 % A1C Magnesium Level 1.9 1.6-2.6 mg/dL B-Type Natriuretic Peptide 115.37 0-100 pg/mL Thyroid Stimulating Hormone (TSH) 2.43 0.55-4.78 uIU/mL Beta HCG, Quantitative 1.8 1.5-4.2 mIU/mL Assessment NSTEMI, rule out coronary artery disease Rule out structural heart disease Hypertriglyceridemia, newly diagnosed Type 2 diabetes mellitus, uncontrolled (Hgb A1c 9.1%) History of anemia Obesity Plan/Recommendation We will continue with the following plan/recommendations (Dr. Rowell): * Transthoracic echocardiogram to evaluate cardiac function * Chest pain protocol * OLIVIA score: 3 points * HEART score: 7 points (high score) * Heparin drip per [facility] pharmacy protocol * Initiate lipid-lowering agent * Close Cardiac surveillance * Coronary angiogram Case discussed with . Given the patient's clinical presentation, comorbidities, elevated troponin level, and high OLIVIA/HEART score, we will recommend the patient to undergo a coronary angiogram with left heart catheterization. The procedure was discussed with the patient in full detail including risks and benefits. Risks include but are not limited to bleeding, contrast-induced nephropathy, stroke, and even . The patient understands and is agreeable to undergo the procedure. We will schedule the patient at soonest availability on 08/31/2024. Thank you for allowing us to care for this patient. Please call with any questions or concerns. Critical care time spent: 44 minutes This medical document was created using an electronic medical record system with voice recognition software and computerized dictation system. Although this document has been carefully reviewed, there might still be some phonetic and typographical errors. Occasional wrong-word or ``sound-alike substitutions may have occurred due to the inherent limitations of voice recognition software. These areas are purely typographical due to imperfections of the software programs and do not reflect any compromise in the patient's medical care. Please read the chart carefully and recognize, using context, where these substitutions have occurred. Plan discussed with: Patient NYHA Physical activity limitations: NA Date of Service: Aug 31, 2024 Billing Provider: CHRIS BRAVO Cardiology Common Codes: [id number] INP/OBS CARE (High) Cardiology Consultation Codes: [id number] CONSULT <45MIN CHRIS BRAVO Aug 31, 2024 09:12
[2024-08-31] MEDS: ASPirin 81 mg TAB PO SCH (09:18)
[2024-08-31 11:25] LABS: INR 0.97 (0.9-1.15); Partial Thromboplastin Time 31.3 SEC (24.5-34.5); Prothrombin Time 10.3 sec (9.3-11.8)
[2024-08-31 12:01] LABS: Rapid Influenza A Negative (Negative); Rapid Influenza B Negative (Negative)
[2024-08-31 12:02] LABS: COVID19 ANTIGEN SOFIA FIA NEGATIVE (NEGATIVE)
[2024-08-31 12:34] LABS: Urine Bacteria FEW /hpf (None Seen); Urine Blood Negative /uL (Negative); Urine Clarity Turbid (Clear); Urine Color Colorless (Yellow); Urine Mucus FEW (None Seen); Urine Protein, UAD Negative (Negative); Urine Specific Gravity 1.031 (1.001-1.035); Urine Squamous Epithelial Cell MOD /hpf (<5); Urine Urobilinogen Normal (Negative); Urine WBC 16 /HPF (0-5)
[2024-08-31 12:42] LABS: Opiate Scree,Urine Neg (NEGATIVE)
[2024-08-31 12:43] LABS: Amphetamine Screen, Urine Neg (NEGATIVE); Barbiturate Scree,Urine Neg (NEGATIVE); Benzodiazephine Screen, Urine Neg (NEGATIVE); Cannabinoid Screen, Urine Neg (NEGATIVE); Cocaine Screen, Urine Neg (NEGATIVE); Phencyclidine Screen, Urine Neg (NEGATIVE)
--- NOTE | 2024-08-31 12:49 | DVHPNRES ---
Progress Note Date Seen: Aug 31, 2024 Resident Creating Document: JORDAN ROMO RESIDENT Medical Necessity Reason Pt with a Central, PICC or Fol: No Subjective Review of Systems Darren Harris is a 49-year-old obese female with past medical history of diabetes came to the hospital due to chest pain functional class 3 since 2 days. Per patient she has constant and localized central chest pain, pressure-like, 8/10 in intensity, worsen with physical activity, improves with resting but do not relieves completely. She also reports shortness of breaths. She denies fever, cough, nausea, vomiting, abdominal pain, dysuria, diarrhea, constipation or any recent sick contact. PMHx: Diabetes and history of anemia (iron-deficiency type) PSHx: Appendectomy Family history: Significant for premature coronary artery disease in dad and grandmother Social history: Lives with the family at home, denies smoking or any other drug use. Has secondhand smoking exposure (hausband and dad smokes cigarettes). Home medication: Lisinopril 2.5 mg, Janumet (sitagliptin/metformin) Allergic history: Penicillin Patient seen and examined at the bedside. Patient currently reporting 3 out of chest pain. Troponins are elevated. Cardiology consulted evaluated the patient and advised to do left heart catheterization today. Objective vital signs Vital Sign Date Time Temp Pulse Resp B/P (MAP) Pulse Ox O2 Delivery O2 Flow Rate FiO2 08/31/24 12:40 97.9 92 18 138/91 (107) 95 97.9 08/31/24 03:55 Room Air* 0 21 Total Intake and Output 08/30/24 08/30/24 08/31/24 15:00 23:00 07:00 Intake Total 1100 ml Output Total 0 ml Balance 1100 ml medications Current Medications Medications Dose Ordered Sig/Michael Route Start Time Stop Time Status Last Admin Dose Admin Sodium Chloride 10 ml Q8HR IV 08/31/24 06:00 08/31/24 11:38 10 ML Nitroglycerin 0.4 mg Q5MINP PRN SL 08/31/24 02:30 Morphine Sulfate 2 mg Q30M PRN IV 08/31/24 02:30 Aspirin 81 mg DAILY PO 08/31/24 10:00 08/31/24 09:18 81 MG Metoprolol Succinate 50 mg DAILY PO 09/01/24 10:00 Lisinopril 2.5 mg DAILY PO 09/01/24 10:00 Pantoprazole Sodium 40 mg DAILY IV 09/01/24 10:00 Diagnostic Test (Pha) 1 strip ACHS 08/31/24 07:00 08/31/24 11:37 1 STRIP Insulin Human Regular HS SC 08/31/24 22:00 Insulin Human Regular AC SC 08/31/24 07:00 08/31/24 06:19 3 UNITS Dextrose 50 ml UD PRN IV 08/31/24 02:45 Atorvastatin Calcium 40 mg HS PO 08/31/24 22:00 Heparin Sodium/ Dextrose 250 ml @ 12 mls/hr [id number] IV 08/31/24 12:00 08/31/24 12:18 12 MLS/HR Examination Pt is lying on bed General Appearance: Alert, Oriented X3, Cooperative, Not in acute distress HEENT: Atraumatic, Mucous membranes moist/pink Respiratory: Clear to auscultation, Normal air movement, No added sounds Cardiovascular: Regular rate, Normal S1, Normal S2, No murmurs Abdominal: Active bowel sounds, Soft, no distention, no tenderness Extremities: No edema, Normal pulses, No tenderness/swelling Skin: No Significant rash, except past surgical scars Neuro: Normal speech, sensorimotor deficits none Psych/Mental Status: Mental status NL, Mood NL Nurse was there as sharperone during examination laboratory and microbiology Laboratory Tests 08/31/24 03:36 Test 08/31/24 03:36 Range/Units Serum Glucose 218 H 74-106 mg/dL Labs and/or images reviewed: Labs reviewed by me, Image(s) reviewed by me Problem List/Assessment/Plan Problem List/Assessment/Plan # R/o Progressive coronary artery disease # R/o ACS # NSTEMI probable type 1 (OLIVIA: 2, LISA: 74) - EKGs shows QS wave in inferior leads, not present on EKG from 2022 - Troponins are elevated - Cardiology consulted evaluated the patient and advised to do left heart catheterization today. - Aspirin, Metoprolol, Lisinopril - Heparin drip - Morphine - Echocardiogram, pending # Hypomagnesemia - monitor lab, replenished Protonix Heparin drip Cardiac diet after [facility] Goals of care discussed with the patient for more than 27 minutes: Full code status Case discussed with the Dr. Foley, patient and RN Plan discussed with: Patient Date of Service: Aug 31, 2024 Billing Provider: TERRI TINOCO MD Common Visit Codes: [id number] INP/OBS CARE(HIGH) JORDAN ROMO RESIDENT Aug 31, 2024 12:49 TERRI TINOCO MD Sep 02, 2024 23:53
[2024-08-31] MEDS: IODIXANOL 320MG/ML 100ML BTL IV ONE ×2 (15:07→17:26)
[2024-08-31] MEDS: ANGIOMAX 250 MG VIAL IV ONE ×2 (16:18→17:39)
[2024-08-31] MEDS: VERAPAMIL 2.5MG/ML INJ 2ML VIAL IV ONE (16:18)
[2024-08-31] MEDS: MIDAZOLAM HCL 2MG/2ML 2ml VIAL (1mg/ml) ONE (16:19)
[2024-08-31] MEDS: fentaNYL CITRATE 100 MCG/2 ML VL ONE (16:19)
[2024-08-31] MEDS: LIDOCAINE 2%HCL (LOCAL ANESTH.) INJ 20ML MDV ONE (16:19)
[2024-08-31] MEDS: SODIUM CHL 0.9% 50 ML ONE ×2 (16:19→17:39)
[2024-08-31] MEDS: ATROPINE SULF 1 MG/10ml SYR ONE (16:40)
[2024-08-31] MEDS: niCARdipine 25 MG/10 ML VIAL IV ONE (17:11)
[2024-08-31] MEDS: EPTIFIBATIDE INJ (2MG/ML) 10ML VIAL IV ONE (17:12)
[2024-08-31] MEDS: METOPROLOL TARTRATE 1MG/1ML-5ML VIAL IV ONE (17:37)
[2024-08-31] MEDS: CLOPIDOGREL BISULFATE 75 MG TAB ONE (17:46)
[2024-08-31] MEDS: ATORVASTATIN 20 MG TAB PO SCH (21:50)
[2024-08-31] MEDS: METOPROLOL SUCCINATE XL 50 MG TAB PO SCH (21:51)
--- NOTE | 2024-08-31 22:04 | DVHINCON2 ---
Date Seen: Aug 31, 2024 Referring Physician MD Thai resident Reason for Consultation NSTEMI History of Present Illness This is a 49-year-old female with a PMH of type 2 diabetes mellitus, anemia, and obesity who presents to the ED with c/o chest pain. Patient reports that the chest pain began on 08/28/24 at approximately 11:00 p.m. while she was sleeping. She describes the pain as unprovoked, constant, pressure-like in nature, substernal with radiation to her left chest. Associated symptoms include shortness of breath. She denies any alleviating or aggravating factors. Patient also reports a significant family history of coronary artery disease including her father, paternal grandmother, and aunts all who have had a myocardial infarction. Initial twelve lead electrocardiogram reveals sinus tachycardia with Q-waves seen in inferior leads. Chest x-ray showed NAD. Initial troponin level of 1405ng/L with rising up trend thereafter and current peak level at 1749ng/L. Past Medical History Past medical history reviewed. No other significant than mentioned above. Past Surgical History Appendectomy Family History: Cerebrovascular accident (CVA) G8 FATHER Allergies: Coded Allergies: Penicillins (Verified Allergy, Unknown, 08/31/24) Home Meds Reported Medications Sitagliptin-Metformin Hcl (JANUMET XR) 1 Tab Tab, 1 TAB PO, TAB 08/31/24 Current Medications Current Medications Medications (Trade) Dose Ordered Sig/Michael Route PRN Reason Start Time Stop Time Status Last Admin Sodium Chloride (Saline Lock Ns) 10 ml Q8HR IV 08/31/24 06:00 08/31/24 11:38 Nitroglycerin (Ntrostat Sublingual) 0.4 mg Q5MINP PRN SL FOR CHEST PAIN 08/31/24 02:30 Morphine Sulfate 2 mg Q30M PRN IV FOR CHEST PAIN 08/31/24 02:30 Aspirin 81 mg DAILY PO 08/31/24 10:00 08/31/24 09:18 Metoprolol Succinate (Toprol Xl) 50 mg DAILY PO 09/01/24 10:00 Lisinopril (Zestril Tablet) 2.5 mg DAILY PO 09/01/24 10:00 Pantoprazole Sodium (Protonix) 40 mg DAILY IV 09/01/24 10:00 Heparin Sodium/ Dextrose 250 ml @ 9 mls/hr Q24H IV 08/31/24 03:00 08/31/24 04:21 Diagnostic Test (Pha) (Accu-Chek Comfort Curve T) 1 strip ACHS 08/31/24 07:00 08/31/24 11:37 Insulin Human Regular (InsuLIN R) HS SC 08/31/24 22:00 Insulin Human Regular (InsuLIN R) AC SC 08/31/24 07:00 08/31/24 06:19 Dextrose 50 ml UD PRN IV Blood Sugar LESS THAN 60 08/31/24 02:45 Atorvastatin Calcium (Lipitor) 40 mg HS PO 08/31/24 22:00 Review of Systems Constitutional: No symptom reported Ears, Nose, & Throat: No symptom reported Eyes: No symptom reported Neurological: No symptoms reported Pulmonary/Respiratory: Shortness of breath Cardiovascular: Chest pain Gastrointestinal: No symptom reported Genitourinary: No symptom reported Musculoskeletal: No symptom reported Skin: No symptom reported Psychiatric: No symptom reported Endocrine: No symptom reported Hematologic/Lymphatic: No symptom reported Vital Signs Vital Signs Date Time Temp Pulse Resp B/P (MAP) Pulse Ox O2 Delivery O2 Flow Rate FiO2 08/31/24 09:00 98.2 96 16 133/84 (100) 92 98.2 08/31/24 03:55 Room Air* 0 21 Physical Exam GENERAL: Awake, alert, oriented. Obese. LUNGS: Clear. CARDIOVASCULAR: Heart sounds are good. ABDOMEN: Soft. Labs/Diagnostic Data Labs Test 08/31/24 10:48 08/31/24 09:54 08/31/24 09:21 08/31/24 06:06 Range/Units Prothrombin Time 10.3 9.3-11.8 sec Prothrombin Time INR 0.97 0.9-1.15 Activated Partial Thromboplast Time 31.3 24.5-34.5 SEC Troponin I High Sensitivity 1749 *H </=34 ng/L POC Glucose 199 H 70-106 mg/dl Test 08/31/24 03:36 08/31/24 01:17 08/31/24 00:30 Range/Units White Blood Count 12.7 H 4.4-10.8 10^3/uL Red Blood Count 4.63 4.0-5.20 10^6/uL Hemoglobin 13.6 12.2-16.2 g/dL Hematocrit 40.3 36.0-46.0 % Mean Corpuscular Volume 87.1 80.0-100.0 fL Mean Corpuscular Hemoglobin 29.3 28.0-32.0 pg Mean Corpuscular Hemoglobin Concent 33.6 32.0-36.0 g/dL Red Cell Distribution Width 14.6 H 11.8-14.3 % Platelet Count 198 140-450 10^3/uL Mean Platelet Volume 10.9 H 6.9-10.8 fL Neutrophils (%) (Auto) 64.1 37.0-80.0 % Lymphocytes (%) (Auto) 28.5 10.0-50.0 % Monocytes (%) (Auto) 6.3 0.0-12.0 % Eosinophils (%) (Auto) 0.7 0.0-7.0 % Basophils (%) (Auto) 0.4 0.0-2.0 % Neutrophils # (Auto) 8.2 1.6-8.6 10 ^3/uL Lymphocytes # (Auto) 3.6 0.4-5.4 10 ^3/uL Monocytes # (Auto) 0.8 0-1.3 10 ^3/uL Eosinophils # (Auto) 0.1 0-0.8 10 ^3/uL Basophils # (Auto) 0.1 0-0.2 10 ^3/uL Nucleated Red Blood Cells 0.0 % Sodium Level 137 136-145 mmol/L Potassium Level 3.8 3.5-5.1 mmol/L Chloride Level 106 98-107 mmol/L Carbon Dioxide Level 21 20-31 mmol/L Anion Gap 10 5-15 Blood Urea Nitrogen 11 9-23 mg/dL Creatinine 0.52 L 0.550-1.02 mg/dL Glomerular Filtration Rate Calc 115 >90 mL/min BUN/Creatinine Ratio 21.2 H 10.0-20.0 Serum Glucose 218 H 74-106 mg/dL Calcium Level 9.3 8.7-10.4 mg/dL Total Bilirubin 0.5 0.2-1.0 mg/dL Aspartate Amino Transferase (AST) 18 13-40 U/L Alanine Aminotransferase (ALT) 19 7-40 U/L Alkaline Phosphatase 91 46-116 U/L Total Protein 6.9 5.7-8.2 g/dL Albumin 4.3 3.2-4.8 g/dL Triglycerides Level 232 H < 150 mg/dL Cholesterol Level 151 < 200 mg/dL LDL Cholesterol 92 < 100 mg/dL HDL Cholesterol 27 L 40-59 mg/dL Hemoglobin A1c 9.1 H <5.7 % A1C Magnesium Level 1.9 1.6-2.6 mg/dL B-Type Natriuretic Peptide 115.37 0-100 pg/mL Thyroid Stimulating Hormone (TSH) 2.43 0.55-4.78 uIU/mL Beta HCG, Quantitative 1.8 1.5-4.2 mIU/mL Assessment NSTEMI, rule out coronary artery disease. Rule out structural heart disease. Hypertriglyceridemia, newly diagnosed. Type 2 diabetes mellitus, uncontrolled (Hgb A1c 9.1%). History of anemia. Obesity. Plan/Recommendation I agree with your ongoing assessment and care of plan. Patient has been seen by Ayana Arora NP on my behalf, her and I discussed the plan with the patient. Given the patient's clinical presentation, comorbidities, elevated troponin level, and high OLIVIA/HEART score, we will recommend the patient to undergo a coronary angiogram with left heart catheterization. The procedure was discussed with the patient in full detail including risks and benefits. Risks include but are not limited to bleeding, contrast-induced nephropathy, stroke, and even . The patient understands and is agreeable to undergo the procedure. We will schedule the patient at soonest availability on 08/31/2024. Transthoracic echocardiogram to evaluate cardiac function. Chest pain protocol. OLIVIA score: 3 points. HEART score: 7 points (high score). Heparin drip per [facility] pharmacy protocol. Initiate lipid-lowering agent. Close Cardiac surveillance. Coronary angiogram. Additional plan as per the hospital course. Plan discussed with: Patient NYHA Physical activity limitations: NA Date of Service: Aug 31, 2024 Billing Provider: MADELINE ALEXANDER MD Cardiology Common Codes: [id number] INP/OBS CARE (High) Cardiology Consultation Codes: [id number] CONSULT <45MIN MADELINE ALEXANDER MD Aug 31, 2024 11:54
[2024-09-01] VITALS (8 sets, daily range): BP systolic 96–122; BP diastolic 59–76; PULSE 63–96; RESP 17–20; TEMP 98.1–99.5; O2SAT 94–97
[2024-09-01] MEDS: CLOPIDOGREL BISULFATE 75 MG TAB PO SCH (09:38)
[2024-09-01] MEDS: ASPirin 81 mg TAB PO SCH (09:38)
[2024-09-01] MEDS: PANTOPRAZOLE 40 MG TAB PO ONE (09:39)
[2024-09-01] MEDS: LISINOPRIL 5 MG TAB PO SCH (09:41)
[2024-09-01] MEDS ORDERED: METOPROLOL SUCCINATE XL 50 MG TAB PO SCH (10:00)
[2024-09-01] MEDS ORDERED: PANTOPRAZOLE 40 MG/10 ML VIAL INJ IV SCH (10:00)
--- NOTE | 2024-09-01 10:03 | DVHOP ---
DATE OF SURGERY: 08/31/2024 TECHNIQUE PERFORMED: * Emergency case. * Insertion of a 6-Brazilian arterial line from right radial artery. * Management of the conscious sedation. * Left heart catheterization. * Left ventriculogram. * Samish selective left and right coronary artery angiography. ASSISTANTS: Assisted by our staff here [facility]. INDICATIONS: As follows: The patient has got 10/10 chest pain, troponin more than 1500 and going to arm neck, back, jaw. Procedure was eventually discussed in a standard manner. DESCRIPTION OF PROCEDURE: The patient was brought to bundle tier and labeler urgently. Right groin was thoroughly cleaned with soap and Betadine. Lidocaine was given. A 6-Brazilian arterial line was placed in a standard manner. The patient was given 100 mcg of nitroglycerin, 2.5 mg of verapamil. The patient already was getting heparin drip. With the help of TIG catheter, 5-Brazilian left coronary angio done. With the help of a similar catheter, we were also able to do the right coronary angiography. Subsequently, we have put in JL3.0 guiding catheter and we were able to do the left heart catheterization. The left ventriculogram was done in the right anterior oblique view with total of 10 mL of dye. It was done under fluoroscopy. IMPRESSION: * Normal left main. * Left anterior descending artery in the mid region is narrowed 99.9%. Circumflex normal. * Right coronary artery ejection fraction of 65%. PLAN OF ACTION: Advised to undergo the intervention on the left anterior descending artery. Porter Rowell MD MP/DON/BLESSING/DANDY TID: [id number] RECEIPT: [id number] MTDCiro
--- NOTE | 2024-09-01 11:47 | DVHPNRES ---
Progress Note Date Seen: Sep 01, 2024 Resident Creating Document: JORDAN ROMO RESIDENT Medical Necessity Reason Pt with a Central, PICC or Fol: No Subjective Review of Systems Darren Harris is a 49-year-old obese female with past medical history of diabetes came to the hospital due to chest pain functional class 3 since 2 days. Patient seen and examined at the bedside. Overnight events reviewed, no new complaints. Patient is Reporting improvement in her chest pain after the procedure. Yesterday patient underwent LHC. Patient reports: No new complaints, Feels better Objective vital signs Vital Sign Date Time Temp Pulse Resp B/P (MAP) Pulse Ox O2 Delivery O2 Flow Rate FiO2 09/01/24 09:41 105/69 09/01/24 09:39 90 09/01/24 09:00 98.2 18 96 98.2 09/01/24 08:00 Room Air* 0 21 Total Intake and Output 08/31/24 08/31/24 09/01/24 15:00 23:00 07:00 Intake Total 0 ml 650 ml Balance 0 ml 650 ml medications Current Medications Medications Dose Ordered Sig/Michael Route Start Time Stop Time Status Last Admin Dose Admin Sodium Chloride 10 ml Q8HR IV 08/31/24 06:00 09/01/24 06:02 10 ML Nitroglycerin 0.4 mg Q5MINP PRN SL 08/31/24 02:30 Morphine Sulfate 2 mg Q30M PRN IV 08/31/24 02:30 Lisinopril 2.5 mg DAILY PO 09/01/24 10:00 09/01/24 09:41 2.5 MG Diagnostic Test (Pha) 1 strip ACHS 08/31/24 07:00 09/01/24 11:26 1 STRIP Insulin Human Regular HS SC 08/31/24 22:00 08/31/24 21:51 4 UNITS Insulin Human Regular AC SC 08/31/24 07:00 09/01/24 11:27 6 UNITS Dextrose 50 ml UD PRN IV 08/31/24 02:45 Metoprolol Succinate 50 mg BID PO 08/31/24 22:00 09/01/24 09:39 50 MG Atorvastatin Calcium 80 mg HS PO 09/01/24 22:00 Aspirin 81 mg DAILY PO 09/01/24 10:00 09/01/24 09:38 81 MG Clopidogrel Bisulfate 75 mg DAILY PO 09/01/24 10:00 09/01/24 09:38 75 MG Pantoprazole Sodium 40 mg DAILY@0600 PO 09/02/24 06:00 Examination Pt is lying on bed General Appearance: Alert, Oriented X3, Cooperative, Not in acute distress HEENT: Atraumatic, Mucous membranes moist/pink Respiratory: Clear to auscultation, Normal air movement, No added sounds Cardiovascular: Regular rate, Normal S1, Normal S2, No murmurs Abdominal: Active bowel sounds, Soft, no distention, no tenderness Extremities: No edema, Normal pulses, No tenderness/swelling Skin: No Significant rash, except past surgical scars Neuro: Normal speech, sensorimotor deficits none Psych/Mental Status: Mental status NL, Mood NL Nurse was there as sharperone during examination laboratory and microbiology Laboratory Tests 08/31/24 03:36 Test 08/31/24 03:36 Range/Units Serum Glucose 218 H 74-106 mg/dL Labs and/or images reviewed: Labs reviewed by me, Image(s) reviewed by me Problem List/Assessment/Plan Problem List/Assessment/Plan # Progressive coronary artery disease # ACS # NSTEMI probable type 1 (OLIVIA: 2, LISA: 74) - EKG shows QS wave in inferior leads, not present on EKG from 2022 - Cardiology consulted evaluated the patient and advised to do left heart catheterization - S/p LHC PTCA with VIN - Continue Aspirin,Clopidegrel, Metoprolol, Lisinopril - DC Heparin drip - Morphine - Echocardiogram, pending # Hypomagnesemia - monitor lab, replenished # uncontrolled type 2 DM with HbA1c 9.1 -Accu-Cheks and ISS -Jardiance started -please discharge patient with Jardiance tomorrow Protonix Heparin drip Cardiac diet Goals of care discussed with the patient for more than 27 minutes: Full code status Case discussed with Dr. Shanks, patient and nurse Plan discussed with: Patient My Orders My Orders Orders - JORDAN ROMO RESIDENT Procedure Category Date Status Time Discontinue Tele RHONDA 09/01/24 In Process 06:11 Transfer Orders XFER 09/01/24 Transmitted 06:11 Complete Blood Count LAB 09/01/24 Logged 06:19 Basic Metabolic Panel LAB 09/01/24 Logged 06:19 Pantoprazole Tablet PHA 09/02/24 In Process (Protonix Tablet) 06:00 Date of Service: Sep 01, 2024 Billing Provider: TRICIA SHANKS MD Common Visit Codes: [id number] INP/OBS CARE(HIGH) JORDAN ROMO RESIDENT Sep 01, 2024 11:47 TRICIA SHANKS MD Sep 02, 2024 11:21
[2024-09-01 12:14] LABS: Basophils # (auto) 0 10 ^3/uL (0-0.2); Basophils % (auto) 0.4 % (0.0-2.0); Eosinophils # (auto) 0.1 10 ^3/uL (0-0.8); Eosinophils % (auto) 0.7 % (0.0-7.0); Hematocrit 44.8 % (36.0-46.0); Hemoglobin 14.8 g/dL (12.2-16.2); Lymphocytes # (auto) 2.8 10 ^3/uL (0.4-5.4); Lymphocytes % (auto) 28.4 % (10.0-50.0); Mean Corpuscular Hemoglobin 28.6 pg (28.0-32.0); Mean Corpuscular Volume 86.7 fL (80.0-100.0); Monocytes # (auto) 0.8 10 ^3/uL (0-1.3); Monocytes % (auto) 8.6 % (0.0-12.0); Neutrophils # (auto) 6.1 10 ^3/uL (1.6-8.6); Neutrophils % (auto) 61.9 % (37.0-80.0); Platelet Count (auto) 198 10^3/uL (140-450); Red Blood Cells 5.17 10^6/uL (4.0-5.20); Red Cell Distribution Width 14.4 % (11.8-14.3); White Blood Cell 9.9 10^3/uL (4.4-10.8)
[2024-09-01 12:22] LABS: Anion Gap 9 (5-15); Carbon Dioxide 26 mmol/L (20-31); Chloride 102 mmol/L (98-107); Potassium 4.1 mmol/L (3.5-5.1); Sodium 137 mmol/L (136-145)
[2024-09-01 12:23] LABS: Calcium 10.3 mg/dL (8.7-10.4)
[2024-09-01 12:28] LABS: BUN/Creatinine Ratio 17.8 (10.0-20.0); Blood Urea Nitrogen 13 mg/dL (9-23); Glucose 229 mg/dL (74-106)
[2024-09-01 18:35] LABS: INR 0.97 (0.9-1.15); Partial Thromboplastin Time 27.9 SEC (24.5-34.5); Prothrombin Time 10.3 sec (9.3-11.8)
[2024-09-01] MEDS: ATORVASTATIN 20 MG TAB PO SCH (21:42)
--- NOTE | 2024-09-01 22:42 | DVHPN2 ---
Progress Note - Dictate Date Seen: Sep 01, 2024 Medical Necessity Reason Pt with a Central, PICC or Fol: No Subjective Patient was seen and evaluated in follow up. Patient underwent left heart catheterization, [place] selective left and right coronary artery angiography. Normal left main. Left anterior descending artery in the mid region is narrowed 99.9%. Circumflex normal. Right coronary artery ejection fraction of 65%. The patient is advised to undergo the intervention on the left anterior descending artery. BS are in the 220's. CBC is unremarkable. Telemetry reviewed. vital signs Vital Sign Date Time Temp Pulse Resp B/P (MAP) Pulse Ox O2 Delivery O2 Flow Rate FiO2 09/01/24 20:00 Room Air* 0 21 09/01/24 17:00 99.5 91 18 102/63 (76) 94 99.5 Total Intake and Output 08/31/24 08/31/24 09/01/24 15:00 23:00 07:00 Intake Total 0 ml 650 ml Balance 0 ml 650 ml medications Current Medications Medications Dose Ordered Sig/Michael Route Start Time Stop Time Status Last Admin Dose Admin Sodium Chloride 10 ml Q8HR IV 08/31/24 06:00 09/01/24 14:10 10 ML Nitroglycerin 0.4 mg Q5MINP PRN SL 08/31/24 02:30 Morphine Sulfate 2 mg Q30M PRN IV 08/31/24 02:30 Lisinopril 2.5 mg DAILY PO 09/01/24 10:00 09/01/24 09:41 2.5 MG Diagnostic Test (Pha) 1 strip ACHS 08/31/24 07:00 09/01/24 18:03 1 STRIP Insulin Human Regular HS SC 08/31/24 22:00 08/31/24 21:51 4 UNITS Insulin Human Regular AC SC 08/31/24 07:00 09/01/24 18:14 12 UNITS Dextrose 50 ml UD PRN IV 08/31/24 02:45 Metoprolol Succinate 50 mg BID PO 08/31/24 22:00 09/01/24 09:39 50 MG Atorvastatin Calcium 80 mg HS PO 09/01/24 22:00 Aspirin 81 mg DAILY PO 09/01/24 10:00 09/01/24 09:38 81 MG Clopidogrel Bisulfate 75 mg DAILY PO 09/01/24 10:00 09/01/24 09:38 75 MG Pantoprazole Sodium 40 mg DAILY@0600 PO 09/02/24 06:00 Empaglifozin 10 mg DAILY PO 09/02/24 10:00 objective GENERAL: Awake, alert, oriented. Obese. LUNGS: Clear. CARDIOVASCULAR: Heart sounds are good. ABDOMEN: Soft. laboratory and microbiology Laboratory Tests 09/01/24 11:34 Test 09/01/24 11:34 Range/Units Serum Glucose 229 H 74-106 mg/dL Problem List NSTEMI, rule out coronary artery disease. Rule out structural heart disease. Hypertriglyceridemia, newly diagnosed. Type 2 diabetes mellitus, uncontrolled (Hgb A1c 9.1%). History of anemia. Obesity. Assessment/Plan Continued all current supportive medical care. Echocardiogram. Aspirin, Lipitor, Plavix, Metoprolol. Lisinopril. GI prophylactics. Morphine for pain management. Additional plan as per the hospital course. Dietary Evaluation Review Comments: 1.Consider adding CCHO restriction to Cardiac diet 2.Consider fish oil for high triglycerides 3.Encourage physical activity for 150 minutes a week as able Expected Outcomes/Goals: wt trend wnl, labs wnl, po intake >75% Plan discussed with: Patient MADELINE ALEXANDER MD Sep 01, 2024 21:12
--- NOTE | 2024-09-02 00:35 | DVHSR ---
APPROVED REPORT EXAM: Two-dimensional and M-mode echocardiogram with Doppler and color Doppler. Blood Pressure: 131/85 mmHg INDICATION LV assessment RISK FACTORS Obesity: Height: 5'7, Weight: 211 DIMENSIONS LVDd4.5 (3.8-5.7cm)LA (2D)3.4 (1.9-4.0cm)Aortic Root (2.0-3.7cm) LVDs3.4 (2.5-4.0cm)LA (MM) (1.9-4.0cm)Aortic Cusp Exc (1.5-2.0cm) EF (%) 50.0 (55-70%)Rt. Atrium3.8 (1.9-4.0cm)Asc. Aorta cm IVSd1.3 (0.7-1.1cm)RV (D)2.7 (1.8-2.4cm) PWd1.0 (0.7-1.1cm) Mitral Valve MitralMitral Stenosis E wave0.72m/sMV Mean GR.mmHg A wave0.88m/sMV Peak GR.81mmHg E/A ratio0.82D MVAcm2 DECEL [id number] 1/2 Timems Aortic Valve Aortic ValveAortic Stenosis V10.89m/Davion Mean GR.4mmHg V21.25m/Davion Peak GR.6mmHg LVOT Diameter2.0 (1.8-2.4cm)Doppler AVA2.24cm2 Tricuspid Valve TR Velocity2.91m/s [id number] Conclusion APICAL AND ANTERIOR WALL MILD HYPOKINESIS RELATED TO DISEASE INVOLVING LEFT ANTERIOR DESCENDIND ARTER Y MILD LVH AND MILD LV DIASTOLIC DYSFUNCTION LV EF IS 55% NORMAL VALVES MILD AORTIC REGURGITATION NO EFFUSION NORMAL RV FRANCINE WITH MODERATE DEGREE TR RELATED CHRONIC RV STRAIN PATTERN
[2024-09-02 01:00] VITALS: BP 103/70; PULSE 84; RESP 18; TEMP 98.6; O2SAT 96
[2024-09-02 05:00] VITALS: BP 101/64; PULSE 89; RESP 19; TEMP 98.7; O2SAT 95
[2024-09-02] MEDS: PANTOPRAZOLE 40 MG TAB PO SCH (05:33)
[2024-09-02 08:00] VITALS: PULSE 86
[2024-09-02 09:00] VITALS: BP 104/61; PULSE 94; RESP 16; TEMP 98.2; O2SAT 95
[2024-09-02] MEDS: EMPAGLIFLOZIN 10 MG TAB PO SCH (09:10)
--- NOTE | 2024-09-02 09:44 | DVHDSRES ---
Discharge Summary Date of Admission Resident Creating Document: ZIGGY DE LA PAZ RESIDENT Aug 31, 2024 at 02:20 Date of Discharge: Sep 02, 2024 Admitting Diagnosis Acute chest pain rule out ACS Wounds: No wound was present. Labs/Diagnostic Data: Laboratory Results Test 09/01/24 18:03 09/01/24 11:34 09/01/24 11:25 08/31/24 12:16 Prothrombin Time 10.3 sec (9.3-11.8) Prothrombin Time INR 0.97 (0.9-1.15) Activated Partial Thromboplast Time 27.9 SEC (24.5-34.5) White Blood Count 9.9 10^3/uL (4.4-10.8) Red Blood Count 5.17 10^6/uL (4.0-5.20) Hemoglobin 14.8 g/dL (12.2-16.2) Hematocrit 44.8 % (36.0-46.0) Mean Corpuscular Volume 86.7 fL (80.0-100.0) Mean Corpuscular Hemoglobin 28.6 pg (28.0-32.0) Mean Corpuscular Hemoglobin Concent 33.0 g/dL (32.0-36.0) Red Cell Distribution Width 14.4 % (11.8-14.3) Platelet Count 198 10^3/uL (140-450) Mean Platelet Volume 10.4 fL (6.9-10.8) Neutrophils (%) (Auto) 61.9 % (37.0-80.0) Lymphocytes (%) (Auto) 28.4 % (10.0-50.0) Monocytes (%) (Auto) 8.6 % (0.0-12.0) Eosinophils (%) (Auto) 0.7 % (0.0-7.0) Basophils (%) (Auto) 0.4 % (0.0-2.0) Neutrophils # (Auto) 6.1 10 ^3/uL (1.6-8.6) Lymphocytes # (Auto) 2.8 10 ^3/uL (0.4-5.4) Monocytes # (Auto) 0.8 10 ^3/uL (0-1.3) Eosinophils # (Auto) 0.1 10 ^3/uL (0-0.8) Basophils # (Auto) 0 10 ^3/uL (0-0.2) Nucleated Red Blood Cells 0.0 % Sodium Level 137 mmol/L (136-145) Potassium Level 4.1 mmol/L (3.5-5.1) Chloride Level 102 mmol/L (98-107) Carbon Dioxide Level 26 mmol/L (20-31) Anion Gap 9 (5-15) Blood Urea Nitrogen 13 mg/dL (9-23) Creatinine 0.73 mg/dL (0.550-1.02) Glomerular Filtration Rate Calc 102 mL/min (>90) BUN/Creatinine Ratio 17.8 (10.0-20.0) Serum Glucose 229 mg/dL (74-106) Calcium Level 10.3 mg/dL (8.7-10.4) POC Glucose 223 mg/dl (70-106) Troponin I High Sensitivity 1947 ng/L (</=34) Test 08/31/24 10:06 08/31/24 09:21 08/31/24 03:36 08/31/24 01:17 Urine Color Colorless (Yellow) Urine Clarity Turbid (Clear) Urine pH 6.0 (5.0-9.0) Urine Specific [place] 1.031 (1.001-1.035) Urine Protein Negative (Negative) Urine Ketones 2+ (Negative) Urine Blood Negative /uL (Negative) Urine Nitrite Negative (Negative) Urine Bilirubin Negative (Negative) Urine Urobilinogen Normal mg/dL (Negative) Urine Leukocyte Esterase 2+ /uL (Negative) Urine RBC 3 /hpf (0 - 4) Urine Microscopic WBC 16 /HPF (0-5) Urine Squamous Epithelial Cells Mod /hpf (<5) Urine Bacteria Few /hpf (None Seen) Urine Mucus Few (None Seen) Urine Glucose 4+ mg/dL (Normal) Urine Opiates Screen Neg (NEGATIVE) Urine Fentanyl Screen Neg (NEGATIVE) Urine Barbiturates Screen Neg (NEGATIVE) Urine Phencyclidine Screen Neg (NEGATIVE) Urine Amphetamines Screen Neg (NEGATIVE) Urine Benzodiazepines Screen Neg (NEGATIVE) Urine Cocaine Screen Neg (NEGATIVE) Urine Cannabinoids Screen Neg (NEGATIVE) Influenza Type A Antigen Negative (Negative) Influenza Type B Antigen Negative (Negative) SARS-CoV-2 Antigen (Rapid) Negative (NEGATIVE) Total Bilirubin 0.5 mg/dL (0.2-1.0) Aspartate Amino Transferase (AST) 18 U/L (13-40) Alanine Aminotransferase (ALT) 19 U/L (7-40) Alkaline Phosphatase 91 U/L (46-116) Total Protein 6.9 g/dL (5.7-8.2) Albumin 4.3 g/dL (3.2-4.8) Triglycerides Level 232 mg/dL (< 150) Cholesterol Level 151 mg/dL (< 200) LDL Cholesterol 92 mg/dL (< 100) HDL Cholesterol 27 mg/dL (40-59) Test 08/31/24 00:30 Hemoglobin A1c 9.1 % A1C (<5.7) Magnesium Level 1.9 mg/dL (1.6-2.6) B-Type Natriuretic Peptide 115.37 pg/mL (0-100) Thyroid Stimulating Hormone (TSH) 2.43 uIU/mL (0.55-4.78) Beta HCG, Quantitative 1.8 mIU/mL (1.5-4.2) Other Laboratory Tests 09/01/24 11:34 Brief Hx & Hospital Course: Darren Harris is a 49-year-old obese female with past medical history of diabetes came to the hospital due to chest pain functional class 3 since 2 days. Per patient she has constant and localized central chest pain, pressure-like, 8/10 in intensity, worsen with physical activity, improves with resting but do not relieves completely. She also reports shortness of breaths. She denies fever, cough, nausea, vomiting, abdominal pain, dysuria, diarrhea, constipation or any recent sick contact. Hospital course: Initial EKG shows sinus rhythm, left axis deviation and borderline repolarization abnormality and troponin trends were Uptrending. Cardiology was consulted and patient underwent emergency left heart catheterization with stent in LAD and the procedure was uneventful. echo revealed ejection fraction 55% with mild LVH and mild LV diastolic dysfunction. No sign of arrhythmia on telemetry monitoring strips after the procedure. Patient was counseled regarding the importance of taking DAPT regularly to prevent the stent thrombosis. Discharge plan was discussed with the patient and all question were answered. Patient is being discharged to home Physical examination: General Appearance: Alert, Oriented X3, Cooperative, No acute distress HEENT: Atraumatic, PERRLA, EOMI, Mucous membrane moist/pink Respiratory: Clear to auscultation, Normal air movement Cardiovascular: Regular rate, Normal S1, Normal S2, No murmurs, no chest wall tenderness Abdominal: Normal bowel sounds, Soft, No tenderness, No hepatospenomegaly, No masses Extremities: No clubbing, No cyanosis, No edema, Normal pulses, No tenderness/swelling Skin: No rashes, No breakdown, No significant lesion Neuro: Normal gait, Normal speech, Strength at 5/5 X4 ext, Normal tone, Sensation intact, Cranial nerves 3-12 NL, Reflexes 2+ Psych/Mental Status: Mental status NL, Mood NL Discharge plan: Disposition : Home Medications : Aspirin 81 mg daily, Plavix 75 mg daily, atorvastatin 80 mg at HS, Jardiance 10 mg daily, lisinopril 2.5 mg daily, metoprolol succinate ER 25 mg daily, pantoprazole 40 mg daily for 2 weeks and continue home medications. Follow up : DC clinic in 1 week Outpatient cardiology in 1 to 2 weeks. Consults/Reason for consult Cardiology was consulted Operations or Procedures EXAM: Two-dimensional and M-mode echocardiogram with Doppler and color Doppler. Blood Pressure: 131/85 mmHg INDICATION LV assessment RISK FACTORS Obesity: Height: 5'7, Weight: 211 DIMENSIONS LVDd 4.5 (3.8-5.7cm) LA (2D) 3.4 (1.9-4.0cm) Aortic Root (2.0- 3.7cm) LVDs 3.4 (2.5-4.0cm) LA (MM) (1.9-4.0cm) Aortic Cusp Exc (1.5- 2.0cm) EF (%) 50.0 (55-70%) Rt. Atrium 3.8 (1.9-4.0cm) Asc. Aorta cm IVSd 1.3 (0.7-1.1cm) RV (D) 2.7 (1.8-2.4cm) PWd 1.0 (0.7-1.1cm) Mitral Valve Mitral Mitral Stenosis E wave 0.72m/s MV Mean GR. mmHg A wave 0.88m/s MV Peak GR. 81mmHg E/A ratio 0.8 2D MVA cm2 DECEL Time 130ms PRESS 1/2 Time ms Aortic Valve Aortic Valve Aortic Stenosis V1 0.89m/s AO Mean GR. 4mmHg V2 1.25m/s AO Peak GR. 6mmHg LVOT Diameter 2.0 (1.8-2.4cm) Doppler JEISON 2.24cm2 Tricuspid Valve TR Velocity 2.91m/s RVSP 34mmHg Conclusion APICAL AND ANTERIOR WALL MILD HYPOKINESIS RELATED TO DISEASE INVOLVING LEFT ANTERIOR DESCENDIND ARTERY MILD LVH AND MILD LV DIASTOLIC DYSFUNCTION LV EF IS 55% NORMAL VALVES MILD AORTIC REGURGITATION NO EFFUSION NORMAL RV FRANCINE WITH MODERATE DEGREE TR RELATED CHRONIC RV STRAIN PATTERN DATE OF SURGERY: 08/31/2024 TECHNIQUE PERFORMED: * Emergency case. * Insertion of a 6-[place] arterial line from right radial artery. * Management of the conscious sedation. * Left heart catheterization. * Left ventriculogram. * [place] selective left and right coronary artery angiography. INDICATIONS: As follows: The patient has got 10/10 chest pain, troponin more than 1500 and going to arm neck, back, jaw. Procedure was eventually discussed in a standard manner. DESCRIPTION OF PROCEDURE: The patient was brought to cleaning laborer urgently. Right groin was thoroughly cleaned with soap and Betadine. Lidocaine was given. A 6-[place] arterial line was placed in a standard manner. The patient was given 100 mcg of nitroglycerin, 2.5 mg of verapamil. The patient already was getting heparin drip. With the help of TIG catheter, 5-[place] left coronary angio done. With the help of a similar catheter, we were also able to do the right coronary angiography. Subsequently, we have put in JL3.0 guiding catheter and we were able to do the left heart catheterization. The left ventriculogram was done in the right anterior oblique view with total of 10 mL of dye. It was done under fluoroscopy. IMPRESSION: * Normal left main. * Left anterior descending artery in the mid region is narrowed 99.9%. Circumflex normal. * Right coronary artery ejection fraction of 65%. PLAN OF ACTION: Advised to undergo the intervention on the left anterior descending artery. Condition at Discharge: Stable Final Diagnosis/Problems List # Acute chest pain likely due to ACS # NSTEMI probable type 1, s/p PTCA X1 stent to LAD # Hypomagnesemia replenished # Uncontrolled type 2 DM with HbA1c 9.1 # Obesity type 1 , BMI 32.6 Kg/m2 Discharge Disposition: Home Discharge Instruct/Medications Diet: Cardiac 2g Na,low cholest Activity: No Restrictions, As Tolerated Follow Up/Referral: Follow up with DC clinic in 1 week Follow up with Cardiology outpatient in 1 to 2 weeks. Medications: As per EMR Discharge Statement: "Patient was advised to return to the ER or call 911 if any headaches, dizziness, shortness of breath, chest pain, abdominal pain, bleeding, fevers, or worsening of medical condition. Patient was counseled about treatment plan, medications, possible side effects, patientverbalized understanding. All questions were answered to the best of my ability. This discharge took greater then 30 minutes in planning, reviewing documentation, counseling the patient, and discussing with other team members." ASSESSMENT ASSESSMENT Assessment # Acute chest pain likely due to ACS # NSTEMI probable type 1, s/p PTCA X1 stent to LAD # Hypomagnesemia replenished # Uncontrolled type 2 DM with HbA1c 9.1 # Obesity type 1 , BMI 32.6 Kg/m2 Date of Service: Sep 02, 2024 Billing Provider: TRICIA OSULLIVAN MD Common Visit Codes: [id number] DISCH DAY >30min ZIGGY DE LA PAZ RESIDENT Sep 02, 2024 09:44 TRICIA OSULLIVAN MD Sep 02, 2024 14:52
[2024-09-02] MEDS ORDERED: CLOP75TA28 PO (09:51)
[2024-09-02] MEDS ORDERED: PANT40TA2 PO (09:51)
[2024-09-02] MEDS ORDERED: METO25TA93 PO (09:51)
[2024-09-02] MEDS ORDERED: ATOR80TA PO (09:51)
[2024-09-02] MEDS ORDERED: LISI2.5T47 PO (09:51)
[2024-09-02] MEDS ORDERED: ASPI81CH59 PO (09:51)
[2024-09-02] MEDS ORDERED: EMPA1TAB PO (09:52)
[2024-09-02 11:00] VITALS: BP 104/61; PULSE 94; TEMP 36.8
--- NOTE | 2024-09-02 19:03 | DVHPN2 ---
Progress Note - Dictate Date Seen: Sep 02, 2024 Medical Necessity Reason Pt with a Central, PICC or Fol: No Subjective Patient was seen and evaluated in follow up. Patient has no new complaints at this time. Patient denies any cardiac symptoms. Patient is cardiac stable for discharge. Telemetry reviewed. vital signs Vital Sign Date Time Temp Pulse Resp B/P (MAP) Pulse Ox O2 Delivery O2 Flow Rate FiO2 09/02/24 11:00 36.8 94 09/02/24 09:12 104/61 09/02/24 09:00 16 95 09/02/24 08:10 Room Air* 0 21 Total Intake and Output 09/01/24 09/01/24 09/02/24 15:00 23:00 07:00 Intake Total 400 ml 600 ml 200 ml Output Total 1 ml Balance 400 ml 599 ml 200 ml objective GENERAL: Awake, alert, oriented. Obese. LUNGS: Clear. CARDIOVASCULAR: Heart sounds are good. ABDOMEN: Soft. laboratory and microbiology Laboratory Tests 09/01/24 11:34 Test 09/01/24 11:34 Range/Units Serum Glucose 229 H 74-106 mg/dL Problem List NSTEMI, rule out coronary artery disease. Rule out structural heart disease. Hypertriglyceridemia, newly diagnosed. Type 2 diabetes mellitus, uncontrolled (Hgb A1c 9.1%). History of anemia. Obesity. Assessment/Plan Continued all current supportive medical care. Echocardiogram. Aspirin, Lipitor, Plavix, Metoprolol. Lisinopril. GI prophylactics. Morphine for pain management. Additional plan as per the hospital course. Dietary Evaluation Review Comments: 1.Consider adding CCHO restriction to Cardiac diet 2.Consider fish oil for high triglycerides 3.Encourage physical activity for 150 minutes a week as able Expected Outcomes/Goals: wt trend wnl, labs wnl, po intake >75% Plan discussed with: Patient MADELINE ALEXANDER MD Sep 02, 2024 18:14
--- NOTE | 2024-09-03 06:56 | DVHOP ---
DATE OF SURGERY: 08/31/2024 TECHNIQUE PERFORMED: * Emergency case. * Insertion of a 6-[place] arterial line from right radial artery. * Management of conscious sedation. * Left coronary angiography. * The mechanical thrombectomy of the left anterior descending artery with a 6-[place] catheter. * Balloon angioplasty of mid region of the left anterior descending artery with 2.5 x 12 mm length semi-compliant balloon. * Balloon angioplasty of the mid region of the left anterior descending artery with 2.5 x 20 mm length semi-compliant balloon. * Stenting and angioplasty of the mid region of the left anterior descending artery with a 3.0 x 18 mm length [place] stent of xTV. * Intravascular ultrasound of the left main and also of the left anterior descending artery. * Intracoronary administration of Integrilin total of 10 mL. * Management of the conscious sedation. COMPLICATIONS: None. ASSISTANTS: Assisted by our staff here is Theresa Dimas. INDICATIONS: The patient has 99.9% narrowing of the mid region of the left anterior descending artery, 10/10 chest pain and non-STEMI with troponin in the range of 1532. DESCRIPTION OF PROCEDURE: In a standard manner, we have brought the patient to our metallurgy laboratory technician. The indications for risks, benefits, alternative treatment, all have been explained to the patient. A 6-[place] arterial line also had been placed and we have put in a JL3.0 guiding catheter. Angiomax was started. Subsequently, we also obtained a left coronary angiography. We also passed a runthrough wire and with the help of a runthrough wire, subsequently we put a balloon 2.5 x 12 mm length balloon, angioplasty was done noted and balloon was watermeloning, but subsequently balloon had been discontinued and subsequently now we put a longer balloon 2.5 x 20 mm length semi-compliant balloon. Balloon angioplasty was done by taking the balloon up to 17 atmosphere. Size of the artery was increased to 2.83 mm in size. Subsequently, balloon deflated and balloon had been discontinued. Subsequently, now we put a stent, 3.0 x 18 mm length [place] stent of xTV, deployed in the mid region of the left anterior descending artery and inflated for 31 seconds, subsequently for 10 seconds and subsequently now the balloon had been discontinued. Intravascular ultrasound was done and the standard position was perfect. There was no complication. Subsequently, intracoronary Integrilin 10 mL was given. The patient got multiple doses of intracoronary nitroglycerin 300 mcg and also nicardipine in the range of 100-300 mcg was given several times and angiography was done. Procedure was prior to performing the procedure, mid region of the left anterior descending artery was narrowed 99.9%. OLIVIA grade 2 flow. The post-procedure OLIVIA grade 3 flow, residual stenosis is 0%. The right coronary artery is a large luminal artery. Circumflex obtuse marginal artery normal. PLAN OF ACTION: The patient was on loading dose of Plavix 600 mg, advised for aspirin. To continue Plavix 75 mg, metoprolol, and Lipitor 80 mg. Discussion done with the patient given outpatient cardiology followup. Porter Rowell MD MP/SENA/AZ/DANDY TID: [id number] RECEIPT: [id number] MTDD
== END 2024-09-02 13:43 | disposition home or self-care (01) | DRG 175 ==
LOC: ER 00:10 → EDBD 00:10 → OVERFLOW 02:20 → MERGE 02:20 → TELE-WESTW 02:32
PROVIDERS: ADMIT Internal Medicine; ATTEND Internal Medicine
PROC: 4A023N7 Measurement of Cardiac Sampling and Pressure, Left Heart, Percutaneous Approach (ICD-10-PCS; principal; 2024-08-31)
PROC: 02C03ZZ Extirpation of Matter from Coronary Artery, One Artery, Percutaneous Approach (ICD-10-PCS; 2024-08-31)
PROC: B2111ZZ Fluoroscopy of Multiple Coronary Arteries using Low Osmolar Contrast (ICD-10-PCS; 2024-08-31)
PROC: B2161ZZ Fluoroscopy of Right and Left Heart using Low Osmolar Contrast (ICD-10-PCS; 2024-08-31)
PROC: 03HY32Z Insertion of Monitoring Device into Upper Artery, Percutaneous Approach (ICD-10-PCS; 2024-08-31)
PROC: B240ZZ3 Ultrasonography of Single Coronary Artery, Intravascular (ICD-10-PCS; 2024-08-31)
PROC: 3E073PZ Introduction of Platelet Inhibitor into Coronary Artery, Percutaneous Approach (ICD-10-PCS; 2024-08-31)
PROC: 027034Z Dilation of Coronary Artery, One Artery with Drug-eluting Intraluminal Device, Percutaneous Approach (ICD-10-PCS; 2024-08-31)
DX: I24.9 Acute ischemic heart disease, unspecified (principal); I21.4 Non-ST elevation (NSTEMI) myocardial infarction; E11.65 Type 2 diabetes mellitus with hyperglycemia; E83.42 Hypomagnesemia; I25.10 Atherosclerotic heart disease of native coronary artery without angina pectoris; Z68.33 Body mass index [BMI] 33.0-33.9, adult; E78.1 Pure hyperglyceridemia; E66.9 Obesity, unspecified; I10 Essential (primary) hypertension; Z77.22 Contact with and (suspected) exposure to environmental tobacco smoke (acute) (chronic); Z79.02 Long term (current) use of antithrombotics/antiplatelets; Z82.3 Family history of stroke; Z82.49 Family history of ischemic heart disease and other diseases of the circulatory system; Z79.899 Other long term (current) drug therapy; Z88.0 Allergy status to penicillin; Z90.49 Acquired absence of other specified parts of digestive tract; Z79.84 Long term (current) use of oral hypoglycemic drugs
CPT/HCPCS: 36415; 71045; 80048; 80053; 80061; 80307; 81001; 82962; 83036; 83735; 83880; 84443; 84484; 84702; 85025; 85610; 85730; 86850; 86900; 86901; 87426; 87804; 92941; 92973; 93005; 93306; 93458; 96361; 96365; 96375; 99152; 99291; G0378; J1815; J2250; J2470; Q9967

== ENCOUNTER 2025-05-20 04:44 | Inpatient (IN) | payer MEDICAID ==
[2025-05-20] VITALS (11 sets, daily range): BP systolic 140–147; BP diastolic 90–94; PULSE 91–108; RESP 16–26; TEMP 98–98.2; O2SAT 95–100
[~2025-05-20] VITALS: Ht 167.6 cm; Wt 94.9 kg
[~2025-05-20 04:44] MED LIST changes: +ASPI81CH59 PO; +ATOR80TA PO; +CLOP75TA28 PO; +EMPA1TAB PO; +LISI2.5T47 PO; +METO25TA93 PO; +PANT40TA2 PO; +SITA50TA28 PO
--- NOTE | 2025-05-20 04:51 | ED.PDOC ---
History of Present Illness HPI Comments 50-year-old, obese female is brought in by ambulance from private residence for chief complaint of pressure like, midsternal chest pain. Per EMS personnel report, patient has a significant history for CT s/p 2x PTCA's on 08/31/24, DM, HLD, and HTN. Patient endorses on sudden, unprovoked, and atraumatic onset of 1010 and at 11:00 p.m., last night, while at rest. Pain radiates to her left arm. Patient took 324mg aspirin prior to ED arrival. On scene blood glucose of 324. Patient denies having any shortness of breath, nausea, vomiting, or further acute symptoms. Time Seen by MD: 04:45 Reviewed Notes: Nurses Notes, Cross Country/Track And Field Coach Notes, Medications, Allergies Allergies: Coded Allergies: Penicillins (Verified Allergy, Unknown, 09/04/24) Home Meds Active Scripts Empagliflozin (Jardiance) 10 Mg Tab, 10 MG PO DAILY for 30 Days, #30 TAB Prov:[facility] 09/02/24 Pantoprazole Sodium Sesquihydr (Protonix) 40 Mg Tab, 40 MG PO DAILY for 14 Days, #14 TAB [facility] 09/02/24 Metoprolol Succinate (Metoprolol Succinate Er) 25 Mg Tab, 1 TAB PO DAILY for 30 Days, #30 TAB 5 Refills [facility] 09/02/24 Lisinopril (Lisinopril) 2.5 Mg Tab, 1 TAB PO DAILY for 30 Days, #30 TAB 5 [facility] 09/02/24 Clopidogrel Bisulfate (Plavix) 75 Mg Tab, 1 TAB PO DAILY for 90 Days, #90 TAB 1 [facility] 09/02/24 Atorvastatin Calcium (Lipitor) 80 Mg Tab, 1 TAB PO DAILY for 30 Days, #30 TAB 5 Refills [facility] 09/02/24 Aspirin (Aspirin Low Dose) 81 Mg Chw, 1 TAB PO DAILY for 90 Days, #90 TAB 3 [facility] 09/[facility]/24 Ferrous Sulfate (Iron) 325 Mg Tab, 325 MG PO BID, #180 TAB Prov:BASSAM GONZALEZ MD 07/10/22 Pantoprazole Sodium Sesquihydr (Pantoprazole Sodium) 40 Mg Tab, 40 MG PO DAILY, #30 TAB Prov:BASSAM GONZALEZ MD 07/10/22 Reported Medications Sitagliptin-Metformin Hcl (JANUMET XR) 1 Tab Tab, 1 TAB PO, TAB 08/31/24 Information Source: Patient, Emergency Med Personnel Mode of Arrival: EMS Severity: Moderate Timing: Hours Duration: Since onset Prehospital treatment: 12 Lead EKG, Accucheck, ASA, Primary Care Provider Past Medical History PAST MEDICAL HISTORY: DM, High Lipids, HTN, CT Surgical History: Appendectomy, PTCA WIRE WHEELER History: No Pertinent WIRE WHEELER History Family History Family History: Reviewed,noncontributory to illness Social History Smoker: Non-Smoker Alcohol: Denies ETOH Use Drugs: Denies Drug Use Lives In: Home All Other Systems: Reviewed and Negative (Comprehensive review of systems are negative unless otherwise stated in HPI) Physical Exam General Appearance: Mild Distress, Obese HEENT: Normal ENT Inspection, Pharynx Normal, TMs Normal Neck: Full Range of Motion, Non-Tender, Normal, Normal Inspection Respiratory: Chest Non-Tender, Lungs Clear, No Accessory Muscle Use, No Respiratory Distress, Normal Breath Sounds Cardiovascular: No Edema, No JVD, No Murmur, No Gallop, Normal Peripheral Pulses, Regular Rate/Rhythm Breast Exam: Deferred Gastrointestinal: No Organomegaly, Non Tender, No Pulsatile Mass, Normal Bowel Sounds, Soft Genitalia: Deferred Pelvic: Deferred Rectal: Deferred Extremities: No calf tenderness, Normal capillary refill, Normal inspection, Normal range of motion, Non-tender, No pedal edema Musculoskeletal : Apperance: Normal Neurologic: Alert, cash applications representative II-XII nml as Tested, No Motor Deficits, Normal Affect, Normal Mood, No Sensory Deficits Cerebellar Function: Normal Reflexes: Normal Skin: Dry, Normal Color, Warm Lymphatic: No Adenopathy Was a procedure done? Was a procedure done?: No EKG EKG : Pulse Rate (adult): 101 [place]: Normal Cardiac Rhythm: ST Block: None Hypertrophy: None ST: Normal Differential Dx Considerations may include: Mi, PE, ACS, CAD, URI, pneumonia, angina, anxiety, gastritis, among others X-Ray, Labs, Meds, VS Vital Signs Date Time Temp Pulse Resp B/P (MAP) Pulse Ox O2 Delivery O2 Flow Rate FiO2 05/20/25 04:51 101 05/20/25 04:45 101 05/20/25 04:45 98.3 99 18 140/90 98 98.3 Lab Test 05/20/25 05:02 Range/Units White Blood Count 10.0 4.4-10.8 10^3/uL Red Blood Count 4.71 4.0-5.20 10^6/uL Hemoglobin 11.5 L 12.2-16.2 g/dL Hematocrit 35.5 L 36.0-46.0 % Mean Corpuscular Volume 75.4 L 80.0-100.0 fL Mean Corpuscular Hemoglobin 24.5 L 28.0-32.0 pg Mean Corpuscular Hemoglobin Concent 32.5 32.0-36.0 g/dL Red Cell Distribution Width 18.3 H 11.8-14.3 % Platelet Count 238 140-450 10^3/uL Mean Platelet Volume 9.7 6.9-10.8 fL Neutrophils (%) (Auto) 66.0 37.0-80.0 % Lymphocytes (%) (Auto) 25.9 10.0-50.0 % Monocytes (%) (Auto) 5.5 0.0-12.0 % Eosinophils (%) (Auto) 2.0 0.0-7.0 % Basophils (%) (Auto) 0.6 0.0-2.0 % Neutrophils # (Auto) 6.6 1.6-8.6 10 ^3/uL Lymphocytes # (Auto) 2.6 0.4-5.4 10 ^3/uL Monocytes # (Auto) 0.6 0-1.3 10 ^3/uL Eosinophils # (Auto) 0.2 0-0.8 10 ^3/uL Basophils # (Auto) 0.1 0-0.2 10 ^3/uL Nucleated Red Blood Cells 0.0 % Prothrombin Time 10.0 9.3-11.8 sec Prothrombin Time INR 0.94 0.9-1.15 Activated Partial Thromboplast Time 27.1 24.5-34.5 SEC Sodium Level 140 136-145 mmol/L Potassium Level 3.9 3.5-5.1 mmol/L Chloride Level 106 98-107 mmol/L Carbon Dioxide Level 23 20-31 mmol/L Anion Gap 11 5-15 Blood Urea Nitrogen 13 9-23 mg/dL Creatinine 0.69 0.550-1.02 mg/dL Glomerular Filtration Rate Calc 107 >90 mL/min BUN/Creatinine Ratio 18.8 10.0-20.0 Serum Glucose 218 H 74-106 mg/dL Calcium Level 9.4 8.7-10.4 mg/dL Total Bilirubin 0.5 0.2-1.0 mg/dL Aspartate Amino Transferase (AST) 12 L 13-40 U/L Alanine Aminotransferase (ALT) 15 7-40 U/L Alkaline Phosphatase 114 46-116 U/L Troponin I High Sensitivity 88 *H </=34 ng/L B-Type Natriuretic Peptide 27.48 0-100 pg/mL Total Protein 7.3 5.7-8.2 g/dL Albumin 4.5 3.2-4.8 g/dL Time of 1ST Reevaluation: 05:15 Reevaluation 1ST: Unchanged Patient Education/Counseling: Diagnosis, Treatment, Other (Need for admission) Family Education/Counseling: No Family Present SEPSIS Sepsis Screen Physician Orders Chest Portable (05/20/25 04:45) Primary Care Provider (05/20/25 04:45) Troponin-I Hs (05/20/25 05:45) Troponin-I Hs (05/20/25 07:45) Vital Signs Date Time Temp Pulse Resp B/P (MAP) Pulse Ox O2 Delivery O2 Flow Rate FiO2 05/20/25 04:51 101 05/20/25 04:45 101 05/20/25 04:45 98.3 99 18 140/90 98 98.3 Laboratory Tests Test 05/20/25 05:02 White Blood Count 10.0 10^3/uL (4.4-10.8) Departure 1 Departure Time of Disposition: 07:00 Impression: Primary Impression: Acute coronary syndrome Disposition: ADMITTED INPATIENT Admit to: Tele Condition: Guarded Comments 50-year-old female with known cardiac history. Patient states she had cardiac stents placed about 9 months ago here [facility]. Patient now presents with substernal chest pain that feels like prior heart attack. Patient received aspirin in the field. Patient feels improved and chest pain-free on arrival. On lab review her blood glucose is elevated at 218. Her troponin is elevated 88. Patient will need to be admitted for supportive care and further workup Critical Care Note Critical Care Time?: Yes (35 min-critical care time only) Critical care comment: Total critical care time: Approximately 36 minutes Due to a high probability of clinically significant, life threatening deterioration, the patient required my highest level of preparedness to intervene emergently and I personally spent this critical care time directly and personally managing the patient. This critical care time included obtaining a history; examining the patient; pulse oximetry; ordering and review of studies; arranging urgent treatment with development of a management plan; evaluation of patient's response to treatment; frequent reassessment; and, discussions with other providers. This critical care time was performed to assess and manage the high probability of imminent, life-threatening deterioration that could result in multi-organ failure. It was exclusive of separately billable procedures and treating other patients. Stability Stability form required: No Heart Score Heart Score: Heart Score Response (Comments) Value History Highly Suspicious 2 EKG Normal 0 Age 45-64 1 Risk Factors >3 or Hx ASHD 2 Troponin Normal limit 0 Total 5 I personally scribed for NISA GARCIA MD ([email or web address]) on 05/20/25 at 04:51. Electronically submitted by Alexander Devi [email or web address]). NISA GARCIA MD May 20, 2025 04:51
[2025-05-20 05:26] LABS: Mean Corpuscular Hemoglobin 24.5 pg (28.0-32.0); Nucleated Red Blood Cells % 0.0 %
[2025-05-20 05:29] LABS: Hematocrit 35.5 % (36.0-46.0); Hemoglobin 11.5 g/dL (12.2-16.2); Mean Corpuscular Volume 75.4 fL (80.0-100.0)
[2025-05-20 05:40] LABS: INR 0.94 (0.9-1.15); Partial Thromboplastin Time 27.1 SEC (24.5-34.5); Prothrombin Time 10.0 sec (9.3-11.8)
[2025-05-20 05:43] LABS: Alanine Aminotransferase 15 U/L (7-40); Albumin 4.5 g/dL (3.2-4.8); Alkaline Phosphatase 114 U/L (46-116); Anion Gap 11 (5-15); BUN/Creatinine Ratio 18.8 (10.0-20.0); Blood Urea Nitrogen 13 mg/dL (9-23); Calcium 9.4 mg/dL (8.7-10.4); Carbon Dioxide 23 mmol/L (20-31); Chloride 106 mmol/L (98-107); Potassium 3.9 mmol/L (3.5-5.1); Sodium 140 mmol/L (136-145); Total Protein 7.3 g/dL (5.7-8.2)
[2025-05-20 05:44] LABS: Bilirubin, Total 0.5 mg/dL (0.2-1.0)
[2025-05-20 05:46] LABS: Glucose 218 mg/dL (74-106)
--- NOTE | 2025-05-20 05:50 | ECG ---
[facility] Test Date: 2025-05-20 Test Time: 05:49:01 Pat Name: JAIME BROWNING Department: Room: 0212T Gender: F Painting Manager: ANA LUISA : 1975 Requested By: NISA GARCIA Order Number: [id number] Reading MD: Liu Rincon Measurements Intervals [place] Rate: 97 P: 33 NV: 127 QRS: -18 QRSD: 83 T: 18 QT: 352 QTc: 447 Interpretive Statements Sinus rhythm Borderline left axis deviation Abnormal R-wave progression, early transition Electronically Signed On 05-21-2025 15:07:12 PST by Liu Rincon Please click the below link to view image of tracing.
--- NOTE | 2025-05-20 06:28 | DVHHPRES ---
History of Present Illness Resident Creating Document: REINA LORENZO RESIDENT History of Present Illness 50-year-old female brought in by EMS with a chief complaint of chest pain starting 11:00 p.m. while she was resting in the bed. Patient reports unprovoked chest pain midsternal radiating to the left arm, pressure-type, a ssociated with nausea, shortness of breaths with exertion, palpitations. She took an aspirin and lisinopril given her blood pressure was 150 systolic. Patient reports waking up at 2 or 3:00 a.m. with similar chest pain, her blood pressure was 190 systolic at the time. She took aspirin once at 11 and once at 3:00 a.m. and came to the hospital. She denies active chest pain at this time She saw Dr. Rowell in December and her echo was unremarkable according to her Past medical history: Diabetes mellitus type 2, CAD status post VIN lad 08/2024 Dr. Rowell Counselor Supervisor: Dr. Rowell next appointment July 21 Home medications: Aspirin, Plavix, lisinopril, metoprolol, Mounjaro, Jardiance, metformin, statin. Reports compliance Patient seen and examined. Tachycardic but regular. Review of Systems Respiratory: SOB with excertion Cardiovascular: Chest Pain Allergies: Coded Allergies: Penicillins (Verified Allergy, Unknown, 09/04/24) Exam Vital Signs Vital Signs Date Time Temp Pulse Resp B/P (MAP) Pulse Ox O2 Delivery O2 Flow Rate FiO2 05/20/25 05:49 97 05/20/25 04:45 98.3 18 140/90 98 98.3 General Appearance: Alert, Oriented X3, Cooperative, No acute distress HEENT: Atraumatic, Mucous membr. moist/pink Respiratory: Clear to auscultation, Normal air movement Cardiovascular: Normal S1, Normal S2, Other (Tachycardic) Abdominal: Normal bowel sounds, No tenderness, No hepatospenomegaly Extremities: No edema, Normal pulses, No tenderness/swelling Neuro: Strength at 5/5 X4 ext Labs/Xrays Labs Test 05/20/25 05:02 Range/Units White Blood Count 10.0 4.4-10.8 10^3/uL Red Blood Count 4.71 4.0-5.20 10^6/uL Hemoglobin 11.5 L 12.2-16.2 g/dL Hematocrit 35.5 L 36.0-46.0 % Mean Corpuscular Volume 75.4 L 80.0-100.0 fL Mean Corpuscular Hemoglobin 24.5 L 28.0-32.0 pg Mean Corpuscular Hemoglobin Concent 32.5 32.0-36.0 g/dL Red Cell Distribution Width 18.3 H 11.8-14.3 % Platelet Count 238 140-450 10^3/uL Mean Platelet Volume 9.7 6.9-10.8 fL Neutrophils (%) (Auto) 66.0 37.0-80.0 % Lymphocytes (%) (Auto) 25.9 10.0-50.0 % Monocytes (%) (Auto) 5.5 0.0-12.0 % Eosinophils (%) (Auto) 2.0 0.0-7.0 % Basophils (%) (Auto) 0.6 0.0-2.0 % Neutrophils # (Auto) 6.6 1.6-8.6 10 ^3/uL Lymphocytes # (Auto) 2.6 0.4-5.4 10 ^3/uL Monocytes # (Auto) 0.6 0-1.3 10 ^3/uL Eosinophils # (Auto) 0.2 0-0.8 10 ^3/uL Basophils # (Auto) 0.1 0-0.2 10 ^3/uL Nucleated Red Blood Cells 0.0 % Prothrombin Time 10.0 9.3-11.8 sec Prothrombin Time INR 0.94 0.9-1.15 Activated Partial Thromboplast Time 27.1 24.5-34.5 SEC Sodium Level 140 136-145 mmol/L Potassium Level 3.9 3.5-5.1 mmol/L Chloride Level 106 98-107 mmol/L Carbon Dioxide Level 23 20-31 mmol/L Anion Gap 11 5-15 Blood Urea Nitrogen 13 9-23 mg/dL Creatinine 0.69 0.550-1.02 mg/dL Glomerular Filtration Rate Calc 107 >90 mL/min BUN/Creatinine Ratio 18.8 10.0-20.0 Serum Glucose 218 H 74-106 mg/dL Calcium Level 9.4 8.7-10.4 mg/dL Total Bilirubin 0.5 0.2-1.0 mg/dL Aspartate Amino Transferase (AST) 12 L 13-40 U/L Alanine Aminotransferase (ALT) 15 7-40 U/L Alkaline Phosphatase 114 46-116 U/L Troponin I High Sensitivity 88 *H </=34 ng/L B-Type Natriuretic Peptide 27.48 0-100 pg/mL Total Protein 7.3 5.7-8.2 g/dL Albumin 4.5 3.2-4.8 g/dL SEPSIS Sepsis Screen Date sepsis recognized/suspect: May 20, 2025 Time Sepsis recognized/suspect: 444 Recent Procedure: No On Antibiotic Therapy: No Respiratory Rate >20: No Heart Rate >90: Yes Temp<36 C (96.8 F) or >38.3 C: No SBP <90 or MAP <65 mmHG: No New Acute Mental Status Change: No Is the patient on CPAP, BIPAP,: No Physician Orders Chest Portable (05/20/25 04:45) Busboy (05/20/25 04:45) Troponin-I Hs (05/20/25 05:45) Troponin-I Hs (05/20/25 07:45) Vital Signs Date Time Temp Pulse Resp B/P (MAP) Pulse Ox O2 Delivery O2 Flow Rate FiO2 05/20/25 05:49 97 05/20/25 04:51 101 05/20/25 04:45 101 05/20/25 04:45 98.3 99 18 140/90 98 98.3 Laboratory Tests Test 05/20/25 05:02 White Blood Count 10.0 10^3/uL (4.4-10.8) Assessment/Plan Assessment/Plan Acute chest pain, rule out ACS NSTEMI Sinus tachycardia History of CAD status post 1 VIN LAD 08/2024 Diabetes mellitus type 2-A1c pending Anemia likely iron-deficiency Uncontrolled hypertension Obesity Troponin 88 BNP 27 Plan: Recommendation Patient admitted to telemetry unit Continue aspirin, Plavix, metoprolol, lisinopril, atorvastatin Mild ISS Cardiology consulted NPO Monitor troponin trend Follow up with lipid panel, A1c, TSH Counseled regarding dietary and physical exercise modifications Plan discussed with patient in which all questions have been answered Goals of care discussed for more than 18 minutes, full code status Case discussed with Dr. Shanks Plan discussed with: Patient Date of Service: May 20, 2025 Billing Provider: TRICIA SHANKS MD Common Visit Codes: [id number] INP/OBS CARE (HIGH) REINA LORENZO May 20, 2025 06:28
--- NOTE | 2025-05-20 06:40 | DVH ---
CHEST RADIOGRAPH Indication: chest pain Technique: Single frontal view of the chest was obtained Comparison: 07/07/2022 FINDINGS: Lines and Tubes: None Lungs: No focal consolidation. Pleura: No effusion. No pneumothorax. Cardiomediastinal contours: Unremarkable Bones: No acute osseous abnormality. IMPRESSION: 1. No acute cardiopulmonary disease.
[2025-05-20] MEDS: LEVALBUTEROL HCL 1.25 MG/3 ML NEB NEB SCH (06:57)
[2025-05-20 07:42] LABS: Magnesium 1.9 mg/dL (1.6-2.6)
[2025-05-20] MEDS: PANTOPRAZOLE 40 MG/10 ML VIAL INJ IV SCH (07:42)
[2025-05-20 07:43] LABS: Cholesterol 108.0 mg/dL (< 200)
[2025-05-20 07:44] LABS: HDL Cholesterol 29.0 mg/dL (40-59); Triglycerides 181.0 mg/dL (< 150)
[2025-05-20] MEDS ORDERED: DEXTROSE (50%) 50ML SYRG IV PRN (10:00)
[2025-05-20] MEDS: EMPAGLIFLOZIN 10 MG TAB PO SCH (10:05)
[2025-05-20] MEDS: METOPROLOL SUCCINATE XL 50 MG TAB PO SCH (10:06)
[2025-05-20] MEDS: CLOPIDOGREL BISULFATE 75 MG TAB PO SCH (10:07)
[2025-05-20] MEDS: LISINOPRIL 5 MG TAB PO SCH (10:08)
[2025-05-20] MEDS: HEPARIN SODIUM (PORCINE) 5000 UNITS/ML 1ML VIAL IV ONE ×2 (11:01→18:00)
[2025-05-20] MEDS: HEPARIN DRIP/D5W 100UNITS/ML 250 ML IV SCH ×2 (11:02→18:00)
[2025-05-20] MEDS: InsuLIN REG 1unit/0.01ml Soln (100units/ml) SC SCH ×2 (11:30→22:09)
[2025-05-20] MEDS: ACCU-CHEK COMFORT CURVE STRIP VI SCH (11:30)
[2025-05-20 13:26] LABS: Hematocrit 38.6 % (36.0-46.0); Hemoglobin 11.5 g/dL (12.2-16.2); Mean Corpuscular Hemoglobin 24.0 pg (28.0-32.0); Mean Corpuscular Volume 81.0 fL (80.0-100.0); Nucleated Red Blood Cells % 0.3 %
--- NOTE | 2025-05-20 14:22 | DVHPNRES ---
Progress Note Date Seen: May 20, 2025 Resident Creating Document: CECELIA CHANDLER RESDIENT Medical Necessity Reason Pt with a Central, PICC or Fol: No Subjective Review of Systems 50-year-old female brought in by EMS with a chief complaint of chest pain starting 11:00 p.m. while she was resting in the bed. Patient reports unprovoked chest pain midsternal radiating to the left arm, pressure-type, associated with nausea, shortness of breaths with exertion, palpitations. She took an aspirin and lisinopril given her blood pressure was 150 systolic. Patient reports waking up at 2 or 3:00 a.m. with similar chest pain, her blood pressure was 190 systolic at the time. She took aspirin once at 11 and once at 3:00 a.m. and came to the hospital. She denies active chest pain at this time She saw Dr. Rowell in December and her echo was unremarkable according to her Past medical history: Diabetes mellitus type 2, CAD status post VIN lad 08/2024 Dr. Rowell Surgical Territory Manager: Dr. Rowell next appointment July 21 Home medications: Aspirin, Plavix, lisinopril, metoprolol, Mounjaro, Jardiance, metformin, statin. Reports compliance On 05/20, the patient seen examined at the bedside. Patient is feeling better since admission but still complaining of mild chest discomfort. Objective vital signs Vital Sign Date Time Temp Pulse Resp B/P (MAP) Pulse Ox O2 Delivery O2 Flow Rate FiO2 05/20/25 11:30 98.5 108 26 152/86 (108) 96 98.5 05/20/25 11:30 Room Air* 0 21 medications Current Medications Medications Dose Ordered Sig/Michael Route Start Time Stop Time Status Last Admin Dose Admin Atorvastatin Calcium 80 mg HS PO 05/20/25 22:00 Empaglifozin 10 mg DAILY PO 05/20/25 10:00 05/20/25 10:05 10 MG Metoprolol Succinate 25 mg DAILY PO 05/20/25 10:00 05/20/25 10:06 25 MG Aspirin 81 mg DAILY PO 05/20/25 10:00 05/20/25 10:07 81 MG Clopidogrel Bisulfate 75 mg DAILY PO 05/20/25 10:00 05/20/25 10:07 75 MG Lisinopril 2.5 mg DAILY PO 05/20/25 10:00 05/20/25 10:08 2.5 MG Pantoprazole Sodium 40 mg DAILY IV 05/20/25 06:45 Levalbuterol HCl 1.25 mg Q6HR NEB 05/20/25 06:45 05/20/25 11:14 1.25 MG Heparin Sodium/ Dextrose 250 ml @ 10 mls/hr Q24H IV 05/20/25 10:30 05/20/25 11:02 10 MLS/HR Diagnostic Test (Pha) 1 strip ACHS 05/20/25 11:30 05/20/25 11:30 1 STRIP Insulin Human Regular HS SC 05/20/25 22:00 Insulin Human Regular AC SC 05/20/25 11:30 05/20/25 11:30 3 UNITS Dextrose 50 ml UD PRN IV 05/20/25 10:00 Examination General Appearance: Alert, Oriented X3, Cooperative, No acute distress HEENT: Atraumatic, PERRLA, EOMI, Mucous membrane moist/pink Respiratory: Clear to auscultation, Normal air movement Cardiovascular: Regular rate, Normal S1, Normal S2, No murmurs, no chest wall tenderness Abdominal: Normal bowel sounds, Soft, No tenderness, No hepatospenomegaly, No masses Extremities: No clubbing, No cyanosis, No edema, Normal pulses, No tenderness/swelling Skin: No rashes, No breakdown, No significant lesion Neuro: Normal gait, Normal speech, Strength at 5/5 X4 ext, Normal tone, Sensation intact, Cranial nerves 3-12 NL, Reflexes 2+ Psych/Mental Status: Mental status NL, Mood NL laboratory and microbiology Laboratory Tests 05/20/25 12:31 05/20/25 05:02 Test 05/20/25 05:02 Range/Units Serum Glucose 218 H 74-106 mg/dL Labs and/or images reviewed: Labs reviewed by me, Image(s) reviewed by me Problem List/Assessment/Plan Problem List/Assessment/Plan NSTEMI, likely type 1 History of coronary artery disease, status post PCI to LAD Hypertension Diabetes type 2 with hyperglycemia Dyslipidemia Obesity * EKGs shows sinus tachycardia with no significant ST or T-wave changes * Chest x-ray shows no significant intra thoracic abnormalities Plan/recommendation: * Dual antiplatelet aspirin and Plavix * Heparin drip * Atorvastatin, lisinopril and metoprolol * Consulted cardiology * Check echocardiogram DIET: Cardiac diet DVT PROPHYLAXIS: On heparin drip CODE STATUS: Goal of care discussed for more than 18 minutes, full code DISPOSITION: Telemetry Patient's status and plan discussed with the patient. Case discussed with Dr. Foley. Plan discussed with: Patient, Other (RN) My Orders My Orders Orders - CECELIA CHANDLER RESDIENT Procedure Category Date Status Time Platelet Monitoring [facility] 05/20/25 In Process 09:55 Heparin Per RHONDA 05/20/25 In Process Standardized Proce 09:55 Discontinue All Im [facility]ONDA 05/20/25 In Process Injections 09:55 Heparin Drip/D5w PHA 05/20/25 In Process 100units/Ml 10:30 Stat Ekg For Chest [facility] 05/20/25 In Process Pain 09:55 Glucose Blood PHA 05/20/25 In Process (Accu-Chek Comfort 11:30 Insulin R (Human) PHA 05/20/25 In Process (Insulin R) 22:00 Insulin R (Human) PHA 05/20/25 In Process (Insulin R) 11:30 Dextrose 50% Syringe PHA 05/20/25 In Process 10:00 Drug Screen LAB 05/20/25 Logged 09:57 Complete Blood Count LAB 05/21/25 Verified 04:00 PTPTT LAB 05/20/25 Logged 17:00 Drug Screen LAB 05/20/25 Logged 11:49 Date of Service: May 20, 2025 Billing Provider: TERRI TINOCO MD Common Visit Codes: [id number] INP/OBS CARE(HIGH) CECELIA CHANDLER RESDIENT May 20, 2025 14:22
[2025-05-20 17:39] LABS: INR 0.97 (0.9-1.15); Partial Thromboplastin Time 31.6 SEC (24.5-34.5); Prothrombin Time 10.3 sec (9.3-11.8)
[2025-05-20 17:57] LABS: Amphetamine Screen, Urine Neg (NEGATIVE); Barbiturate Scree,Urine Neg (NEGATIVE); Benzodiazephine Screen, Urine Neg (NEGATIVE); Cannabinoid Screen, Urine Neg (NEGATIVE); Cocaine Screen, Urine Neg (NEGATIVE); Opiate Scree,Urine Neg (NEGATIVE); Phencyclidine Screen, Urine Neg (NEGATIVE)
--- NOTE | 2025-05-20 18:08 | CONS ---
Pharmacy Clinical Information: HEPARIN PER ACS PROTOCOL: APTT result of 31.6 received from draw on 05/20 @1704. Bolus of 5000 units + increase rate 300 units per hour. New rate is 1300 units per hour (13ml/hr). Orders read back and confirmed with MARIA TERESA Santillan @4024. Next APTT scheduled for 0000 on 05/21. NEYDA PLUMMER PHARMACIST May 20, 2025 18:08
[2025-05-20 18:10] LABS: Urine Protein, UAD Negative (Negative)
[2025-05-20] MEDS ORDERED: TIRZ5INJ SC (18:27)
[2025-05-20] MEDS ORDERED: HYDROcodone-ACET 5/325MG TAB PO ONE (20:45)
[2025-05-20] MEDS ORDERED: ACETAMINOPHEN 500 MG TAB or CAP PO ONE (21:15)
[2025-05-20] MEDS: ACETAMINOPHEN 325 MG TAB PO ONE (21:47)
[2025-05-20] MEDS: ATORVASTATIN 20 MG TAB PO SCH (22:06)
--- NOTE | 2025-05-20 23:58 | DVHINCON2 ---
Date of service: May 20, 2025 Referring Physician Roz Reason for Consultation Chest pain, NSTEMI History of Present Illness This is a 50-year-old female with a PMH of Diabetes mellitus type 2, CAD status post VIN lad 08/2024 who is brought in by EMS with a complaint of chest pain starting 11:00 p.m. while she was resting in the bed. Patient reports unprovoked chest pain midsternal radiating to the left arm, pressure-type, associated with nausea, shortness of breaths with exertion, palpitations. She took an aspirin and lisinopril given her blood pressure was 150 systolic. Patient reports waking up at 2 or 3:00 a.m. with similar chest pain, her blood pressure was 190 systolic at the time. She took aspirin once at 11 and once at 3:00 a.m. and came to the hospital. She denies active chest pain at this time Patients last echo was in December. EKG shows tachycardia at 101. CBC is unremarkable. Troponin 88 > 92 > 84. Trig 181, HDL 29. Patient was admitted to the hospital. I am asked to consult on this patient. Family History: Cerebrovascular accident (CVA) G8 FATHER Allergies: Coded Allergies: Penicillins (Verified Allergy, Unknown, 09/04/24) Home Meds Active Scripts Empagliflozin (Jardiance) 10 Mg Tab, 10 MG PO DAILY for 30 Days, #30 TAB Prov:FAVIOZIGGY RESIDENT 09/02/24 Pantoprazole Sodium Sesquihydr (Protonix) 40 Mg Tab, 40 MG PO DAILY for 14 Days, #14 TAB Prov:ZIGGY DE LA PAZ [facility] 09/02/24 Metoprolol Succinate (Metoprolol Succinate Er) 25 Mg Tab, 1 TAB PO DAILY for 30 Days, #30 TAB 5 Refills Prov[facility]/02/24 Lisinopril (Lisinopril) 2.5 Mg Tab, 1 TAB PO DAILY for 30 Days, #30 TAB 5 Refills Prov[facility]/24 Clopidogrel Bisulfate (Plavix) 75 Mg Tab, 1 TAB PO DAILY for 90 Days, #90 TAB 1 Refill Prov:ZIGGY DE LA PAZ [facility] 09/02/24 Atorvastatin Calcium (Lipitor) 80 Mg Tab, 1 TAB PO DAILY for 30 Days, #30 TAB 5 Refills Prov:ZIGGY DE LA PAZ RESIDENT 09/02/24 Aspirin (Aspirin Low Dose) 81 Mg Chw, 1 TAB PO DAILY for 90 Days, #90 TAB 3 Refills Prov:ZIGGY DE LA PAZ RESIDENT 09/02/24 Ferrous Sulfate (Iron) 325 Mg Tab, 325 MG PO BID, #180 TAB Prov:BASSAM GONZALEZ MD 07/10/22 Pantoprazole Sodium Sesquihydr (Pantoprazole Sodium) 40 Mg Tab, 40 MG PO DAILY, #30 TAB Prov:BASSAM GONZALEZ MD 07/10/22 Reported Medications Tirzepatide (Mounjaro) 5 Mg/0.5 Ml Inj, 5 MG SC, INJ 05/20/25 Sitagliptin-Metformin Hcl (JANUMET XR) 1 Tab Tab, 1 TAB PO, TAB 08/31/24 Current Medications Current Medications Medications (Trade) Dose Ordered Sig/Michael Route PRN Reason Start Time Stop Time Status Last Admin Atorvastatin Calcium (Lipitor) 80 mg HS PO 05/20/25 22:00 05/20/25 22:06 Empaglifozin (Jardiance) 10 mg DAILY PO 05/20/25 10:00 05/20/25 10:05 Metoprolol Succinate (Toprol Xl) 25 mg DAILY PO 05/20/25 10:00 05/20/25 10:06 Aspirin 81 mg DAILY PO 05/20/25 10:00 05/20/25 10:07 Clopidogrel Bisulfate (Plavix) 75 mg DAILY PO 05/20/25 10:00 05/20/25 10:07 Lisinopril (Zestril Tablet) 2.5 mg DAILY PO 05/20/25 10:00 05/20/25 10:08 Pantoprazole Sodium (Protonix) 40 mg DAILY IV 05/20/25 06:45 Levalbuterol HCl (Xopenex Medneb) 1.25 mg Q6HR NEB 05/20/25 06:45 05/20/25 19:08 Heparin Sodium/ Dextrose 250 ml @ 10 mls/hr Q24H IV 05/20/25 10:30 05/20/25 17:57 DC 05/20/25 11:02 Diagnostic Test (Pha) (Accu-Chek Comfort Curve T) 1 strip ACHS 05/20/25 11:30 05/20/25 22:06 Insulin Human Regular (InsuLIN R) HS SC 05/20/25 22:00 05/20/25 22:09 Insulin Human Regular (InsuLIN R) AC SC 05/20/25 11:30 05/20/25 11:30 Dextrose 50 ml UD PRN IV Blood Sugar LESS THAN 60 05/20/25 10:00 Heparin Sodium/ Dextrose 250 ml @ 13 mls/hr [id number] IV 05/20/25 18:00 05/20/25 18:00 Review of Systems Respiratory: SOB with excertion Cardiovascular: Chest Pain Vital Signs Vital Signs Date Time Temp Pulse Resp B/P (MAP) Pulse Ox O2 Delivery O2 Flow Rate FiO2 05/20/25 21:47 97.7 05/20/25 21:00 105 17 147/94 (111) 95 05/20/25 19:08 Room Air 05/20/25 19:08 0 21 Physical Exam GENERAL: Alert and oriented x 3. No acute distress. EYES: PERRL, EOMI. Anicteric. HENT: Moist mucous membranes. LUNGS: Clear to auscultation bilaterally. CARDIOVASCULAR: Regular rate and rhythm. ABDOMEN: Soft, non-tender and non-distended. EXTREMITIES: No edema. NEUROLOGIC: No focal neurological deficits. SKIN: Warm, dry. Labs/Diagnostic Data Labs Test 05/20/25 21:49 05/20/25 17:30 05/20/25 17:04 05/20/25 12:31 Range/Units POC Glucose 168 H 70-106 mg/dl Urine Color Colorless Yellow Urine Clarity Turbid H Clear Urine pH 5.0 5.0-9.0 Urine Specific [place] 1.018 1.001-1.035 Urine Protein Negative Negative Urine Ketones Trace Negative Urine Blood Negative Negative /uL Urine Nitrite 1+ H Negative Urine Bilirubin Negative Negative Urine Urobilinogen Normal Negative mg/dL Urine Leukocyte Esterase 3+ Negative /uL Urine RBC 2 0 - 4 /hpf Urine Microscopic WBC 28 H 0-5 /HPF Urine Squamous Epithelial Cells Few <5 /hpf Urine Bacteria Mod H None Seen /hpf Urine Mucus Few None Seen Urine Glucose 4+ H Normal mg/dL Urine Opiates Screen Neg NEGATIVE Urine Fentanyl Screen Neg NEGATIVE Urine Barbiturates Screen Neg NEGATIVE Urine Phencyclidine Screen Neg NEGATIVE Urine Amphetamines Screen Neg NEGATIVE Urine Benzodiazepines Screen Neg NEGATIVE Urine Cocaine Screen Neg NEGATIVE Urine Cannabinoids Screen Neg NEGATIVE Prothrombin Time 10.3 9.3-11.8 sec Prothrombin Time INR 0.97 0.9-1.15 Activated Partial Thromboplast Time 31.6 24.5-34.5 SEC White Blood Count 10.7 4.4-10.8 10^3/uL Red Blood Count 4.77 4.0-5.20 10^6/uL Hemoglobin 11.5 L 12.2-16.2 g/dL Hematocrit 38.6 36.0-46.0 % Mean Corpuscular Volume 81.0 # 80.0-100.0 fL Mean Corpuscular Hemoglobin 24.0 L 28.0-32.0 pg Mean Corpuscular Hemoglobin Concent 29.7 L 32.0-36.0 g/dL Red Cell Distribution Width 19.1 H 11.8-14.3 % Platelet Count 236 140-450 10^3/uL Mean Platelet Volume 9.6 6.9-10.8 fL Neutrophils (%) (Auto) 58.1 37.0-80.0 % Lymphocytes (%) (Auto) 33.7 10.0-50.0 % Monocytes (%) (Auto) 5.1 0.0-12.0 % Eosinophils (%) (Auto) 2.5 0.0-7.0 % Basophils (%) (Auto) 0.6 0.0-2.0 % Neutrophils # (Auto) 6.2 1.6-8.6 10 ^3/uL Lymphocytes # (Auto) 3.6 0.4-5.4 10 ^3/uL Monocytes # (Auto) 0.5 0-1.3 10 ^3/uL Eosinophils # (Auto) 0.3 0-0.8 10 ^3/uL Basophils # (Auto) 0.1 0-0.2 10 ^3/uL Nucleated Red Blood Cells 0.3 % Test 05/20/25 08:08 05/20/25 06:19 05/20/25 05:02 Range/Units Troponin I High Sensitivity 84 *H </=34 ng/L Hemoglobin A1c 8.1 H <5.7 % A1C Magnesium Level 1.9 1.6-2.6 mg/dL Triglycerides Level 181 H < 150 mg/dL Cholesterol Level 108 < 200 mg/dL LDL Cholesterol 61 < 100 mg/dL HDL Cholesterol 29 L 40-59 mg/dL Vitamin B12 Level 315 211-911 pg/mL Vitamin D 25-Hydroxy 37.0 30.0-100 ng/mL Thyroid Stimulating Hormone (TSH) 3.17 0.55-4.78 uIU/mL Sodium Level 140 136-145 mmol/L Potassium Level 3.9 3.5-5.1 mmol/L Chloride Level 106 98-107 mmol/L Carbon Dioxide Level 23 20-31 mmol/L Anion Gap 11 5-15 Blood Urea Nitrogen 13 9-23 mg/dL Creatinine 0.69 0.550-1.02 mg/dL Glomerular Filtration Rate Calc 107 >90 mL/min BUN/Creatinine Ratio 18.8 10.0-20.0 Serum Glucose 218 H 74-106 mg/dL Calcium Level 9.4 8.7-10.4 mg/dL Total Bilirubin 0.5 0.2-1.0 mg/dL Aspartate Amino Transferase (AST) 12 L 13-40 U/L Alanine Aminotransferase (ALT) 15 7-40 U/L Alkaline Phosphatase 114 46-116 U/L B-Type Natriuretic Peptide 27.48 0-100 pg/mL Total Protein 7.3 5.7-8.2 g/dL Albumin 4.5 3.2-4.8 g/dL Assessment Cest pain. NSTEMI. Sinus tachycardia. History of CAD status post 1 VIN LAD 08/2024. Diabetes mellitus type 2. Anemia. Uncontrolled hypertension. Plan/Recommendation I agree with your ongoing assessment and care of plan. Echocardiogram. Aspirin, Lipitor, Plavix, Metoprolol. Heparin drip per pharmacy. Lisinopril. GI prophylactics. Additional plan as per the hospital course. A total of 45 minutes was spent reviewing the patient record, examining the patient, making a diagnostic and therapeutic plan, discussing this plan with medical personnel, following up on diagnostic studies and following the patient for clinical stability excluding any and all procedures. At least 50% of this time was spent in direct, [id number] contact. Plan discussed with: Patient MADELINE ALEXANDER MD May 20, 2025 23:58
[2025-05-21] VITALS (17 sets, daily range): BP systolic 110–130; BP diastolic 71–88; PULSE 90–116; RESP 16–18; TEMP 97.7–98.5; O2SAT 94–100
[2025-05-21 01:50] LABS: INR 0.98 (0.9-1.15); Partial Thromboplastin Time 44.7 SEC (24.5-34.5); Prothrombin Time 10.4 sec (9.3-11.8)
[2025-05-21] MEDS: HEPARIN DRIP/D5W 100UNITS/ML 250 ML IV SCH ×2 (04:42→13:30)
[2025-05-21 08:50] LABS: Hematocrit 36.7 % (36.0-46.0); Hemoglobin 11.7 g/dL (12.2-16.2); Mean Corpuscular Hemoglobin 24.1 pg (28.0-32.0); Mean Corpuscular Volume 75.7 fL (80.0-100.0); Nucleated Red Blood Cells % 0.0 %
[2025-05-21 09:03] LABS: INR 0.99 (0.9-1.15); Partial Thromboplastin Time 50.3 SEC (24.5-34.5); Prothrombin Time 10.5 sec (9.3-11.8)
[2025-05-21 09:17] LABS: Alanine Aminotransferase 15 U/L (7-40); Albumin 4.4 g/dL (3.2-4.8); Anion Gap 11 (5-15); BUN/Creatinine Ratio 20.4 (10.0-20.0); Bilirubin, Total 0.7 mg/dL (0.2-1.0); Blood Urea Nitrogen 11 mg/dL (9-23); Calcium 9.5 mg/dL (8.7-10.4); Carbon Dioxide 24 mmol/L (20-31); Chloride 106 mmol/L (98-107); Potassium 3.9 mmol/L (3.5-5.1); Sodium 141 mmol/L (136-145); Total Protein 7.2 g/dL (5.7-8.2)
[2025-05-21 09:22] LABS: Alkaline Phosphatase 121 U/L (46-116); Glucose 173 mg/dL (74-106)
[2025-05-21] MEDS: ASPirin-EC 81 mg tab PO SCH (10:35)
[2025-05-21 13:11] LABS: INR 0.99 (0.9-1.15); Partial Thromboplastin Time 48.8 SEC (24.5-34.5); Prothrombin Time 10.5 sec (9.3-11.8)
--- NOTE | 2025-05-21 13:27 | CONS ---
Pharmacy Clinical Information: HEPARIN DRIP, ACS PROTOCOL @1242 APTT 48.8- NO BOLUS, INCREASE HEPARIN DRIP RATE TO 1700 UNITS/HR NEXT APTT DRAW SCHEDULED @1930 PER RX PROTOCOL CONFIRMED AND READ BACK WITH MARGIE RUSSO [facility] RESIDENT May 21, 2025 13:27
--- NOTE | 2025-05-21 14:44 | DVHPNRES ---
Progress Note Date Seen: May 21, 2025 Resident Creating Document: CECELIA CHANDLER RESDIENT Medical Necessity Reason Pt with a Central, PICC or Fol: No Subjective Review of Systems 50-year-old female brought in by EMS with a chief complaint of chest pain starting 11:00 p.m. while she was resting in the bed. Patient reports unprovoked chest pain midsternal radiating to the left arm, pressure-type, associated with nausea, shortness of breaths with exertion, palpitations. She took an aspirin and lisinopril given her blood pressure was 150 systolic. Patient reports waking up at 2 or 3:00 a.m. with similar chest pain, her blood pressure was 190 systolic at the time. She took aspirin once at 11 and once at 3:00 a.m. and came to the hospital. She denies active chest pain at this time She saw Dr. Rowell in December and her echo was unremarkable according to her Past medical history: Diabetes mellitus type 2, CAD status post VIN lad 08/2024 Dr. Rowell Surgical Garment Fitter: Dr. Rowell next appointment July 21 Home medications: Aspirin, Plavix, lisinopril, metoprolol, Mounjaro, Jardiance, metformin, statin. Reports compliance On 05/20, the patient seen examined at the bedside. Patient is feeling better since admission but still complaining of mild chest discomfort. On 05/21, the patient seen and examined at the bedside. Patient is feeling better, does not any pain. Objective vital signs Vital Sign Date Time Temp Pulse Resp B/P (MAP) Pulse Ox O2 Delivery O2 Flow Rate FiO2 05/21/25 13:00 97.9 94 17 116/72 (87) 96 97.9 05/21/25 12:32 Room Air 0.0 05/21/25 12:32 21 Total Intake and Output 05/20/25 05/20/25 05/21/25 15:00 23:00 07:00 Intake Total 40 ml 10 ml 450 ml Balance 40 ml 10 ml 450 ml medications Current Medications Medications Dose Ordered Sig/Michael Route Start Time Stop Time Status Last Admin Dose Admin Atorvastatin Calcium 80 mg HS PO 05/20/25 22:00 05/20/25 22:06 80 MG Empaglifozin 10 mg DAILY PO 05/20/25 10:00 05/21/25 09:57 10 MG Metoprolol Succinate 25 mg DAILY PO 05/20/25 10:00 05/21/25 09:57 25 MG Clopidogrel Bisulfate 75 mg DAILY PO 05/20/25 10:00 05/21/25 09:57 75 MG Lisinopril 2.5 mg DAILY PO 05/20/25 10:00 05/21/25 09:56 2.5 MG Pantoprazole Sodium 40 mg DAILY IV 05/20/25 06:45 05/21/25 09:54 40 MG Levalbuterol HCl 1.25 mg Q6HR NEB 05/20/25 06:45 05/21/25 12:31 1.25 MG Diagnostic Test (Pha) 1 strip ACHS 05/20/25 11:30 05/21/25 11:46 1 STRIP Insulin Human Regular HS SC 05/20/25 22:00 05/20/25 22:09 3 UNITS Insulin Human Regular AC SC 05/20/25 11:30 05/21/25 11:47 3 UNITS Dextrose 50 ml UD PRN IV 05/20/25 10:00 Aspirin 81 mg DAILY PO 05/21/25 10:09 05/21/25 10:35 81 MG Heparin Sodium/ Dextrose 250 ml @ 17 mls/hr [id number] IV 05/21/25 13:30 Examination General Appearance: Alert, Oriented X3, Cooperative, No acute distress HEENT: Atraumatic, PERRLA, EOMI, Mucous membrane moist/pink Respiratory: Clear to auscultation, Normal air movement Cardiovascular: Regular rate, Normal S1, Normal S2, No murmurs, no chest wall tenderness Abdominal: Normal bowel sounds, Soft, No tenderness, No hepatospenomegaly, No masses Extremities: No clubbing, No cyanosis, No edema, Normal pulses, No tenderness/swelling Skin: No rashes, No breakdown, No significant lesion Neuro: Normal gait, Normal speech, Strength at 5/5 X4 ext, Normal tone, Sensation intact, Cranial nerves 3-12 NL, Reflexes 2+ Psych/Mental Status: Mental status NL, Mood NL laboratory and microbiology Laboratory Tests 05/21/25 08:28 Test 05/21/25 08:28 Range/Units Serum Glucose 173 H 74-106 mg/dL Labs and/or images reviewed: Labs reviewed by me, Image(s) reviewed by me Problem List/Assessment/Plan Problem List/Assessment/Plan NSTEMI, likely type 1 History of coronary artery disease, status post PCI to LAD Hypertension Diabetes type 2 with hyperglycemia Dyslipidemia Obesity * EKGs shows sinus tachycardia with no significant ST or T-wave changes * Chest x-ray shows no significant intra thoracic abnormalities Plan/recommendation: * Dual antiplatelet aspirin and Plavix * Heparin drip * Atorvastatin, lisinopril and metoprolol * Consulted cardiology, recommended medical management * Check echocardiogram DIET: Cardiac diet DVT PROPHYLAXIS: On heparin drip CODE STATUS: Goal of care discussed for more than 18 minutes, full code DISPOSITION: Telemetry Patient's status and plan discussed with the patient. Case discussed with Dr. Foley. Plan discussed with: Patient, Other (RN) My Orders My Orders Orders - CECELIA CHANDLER Procedure Category Date Status Time Cardiac DIET 05/20/25 Transmitted Diet-2gna,Lofat,Lochol Dinner Heparin Per Pharmacy RHONDA 05/20/25 In Process Protocol 18:00 Heparin Per Pharmacy RHONDA 05/21/25 In Process Protocol 02:13 Heparin Drip/D5w PHA 05/21/25 In Process 100units/Ml 13:30 PTPTT LAB 05/21/25 Logged 19:30 Complete Blood Count LAB 05/22/25 Verified 04:00 Heparin Per Pharmacy RHONDA 05/21/25 In Process Protocol 13:23 Date of Service: May 21, 2025 Billing Provider: TERRI TINOCO MD Common Visit Codes: [id number] INP/OBS CARE(HIGH) CECELIA CHANDLER May 21, 2025 14:44
[2025-05-21 15:05] LABS: Chloride 107 mmol/L (98-107); Potassium 4.0 mmol/L (3.5-5.1); Sodium 143 mmol/L (136-145)
[2025-05-21 15:06] LABS: Anion Gap 12 (5-15); Carbon Dioxide 24 mmol/L (20-31)
[2025-05-21 15:07] LABS: Calcium 9.6 mg/dL (8.7-10.4)
[2025-05-21 15:11] LABS: BUN/Creatinine Ratio 20.8 (10.0-20.0); Blood Urea Nitrogen 15 mg/dL (9-23)
[2025-05-21 15:12] LABS: Glucose 225 mg/dL (74-106)
[2025-05-21 19:59] LABS: INR 1.01 (0.9-1.15); Partial Thromboplastin Time 55.8 SEC (24.5-34.5); Prothrombin Time 10.7 sec (9.3-11.8)
[2025-05-22] VITALS (10 sets, daily range): BP systolic 103–120; BP diastolic 62–77; PULSE 90–108; RESP 16–18; TEMP 96.7–97.6; O2SAT 94–100
--- NOTE | 2025-05-22 00:29 | DVHPN2 ---
Progress Note - Dictate Date Seen: May 21, 2025 Medical Necessity Reason Pt with a Central, PICC or Fol: No Subjective Patient was seen and evaluated in follow up. Patient is feeling better today. He remains on heparin drip. GLUC 225. Telemetry reviewed. vital signs Vital Sign Date Time Temp Pulse Resp B/P (MAP) Pulse Ox O2 Delivery O2 Flow Rate FiO2 05/21/25 13:00 97.9 94 17 116/72 (87) 96 97.9 05/21/25 12:32 Room Air 0.0 05/21/25 12:32 21 Total Intake and Output 05/20/25 05/20/25 05/21/25 15:00 23:00 07:00 Intake Total 40 ml 10 ml 450 ml Balance 40 ml 10 ml 450 ml medications Current Medications Medications Dose Ordered Sig/Michael Route Start Time Stop Time Status Last Admin Dose Admin Atorvastatin Calcium 80 mg HS PO 05/20/25 22:00 05/20/25 22:06 80 MG Empaglifozin 10 mg DAILY PO 05/20/25 10:00 05/21/25 09:57 10 MG Metoprolol Succinate 25 mg DAILY PO 05/20/25 10:00 05/21/25 09:57 25 MG Clopidogrel Bisulfate 75 mg DAILY PO 05/20/25 10:00 05/21/25 09:57 75 MG Lisinopril 2.5 mg DAILY PO 05/20/25 10:00 05/21/25 09:56 2.5 MG Pantoprazole Sodium 40 mg DAILY IV 05/20/25 06:45 05/21/25 09:54 40 MG Levalbuterol HCl 1.25 mg Q6HR NEB 05/20/25 06:45 05/21/25 12:31 1.25 MG Diagnostic Test (Pha) 1 strip ACHS 05/20/25 11:30 05/21/25 11:46 1 STRIP Insulin Human Regular HS SC 05/20/25 22:00 05/20/25 22:09 3 UNITS Insulin Human Regular AC SC 05/20/25 11:30 05/21/25 11:47 3 UNITS Dextrose 50 ml UD PRN IV 05/20/25 10:00 Aspirin 81 mg DAILY PO 05/21/25 10:09 05/21/25 10:35 81 MG Heparin Sodium/ Dextrose 250 ml @ 17 mls/hr [id number] IV 05/21/25 13:30 objective GENERAL: Alert and oriented x 3. No acute distress. EYES: PERRL, EOMI. Anicteric. HENT: Moist mucous membranes. LUNGS: Clear to auscultation bilaterally. CARDIOVASCULAR: Regular rate and rhythm. ABDOMEN: Soft, non-tender and non-distended. EXTREMITIES: No edema. NEUROLOGIC: No focal neurological deficits. SKIN: Warm, dry. laboratory and microbiology Laboratory Tests 05/21/25 12:42 05/21/25 08:28 Test 05/21/25 12:42 Range/Units Serum Glucose 225 H 74-106 mg/dL Problem List Chest pain. NSTEMI. Sinus tachycardia. History of CAD status post 1 VIN LAD 08/2024. Diabetes mellitus type 2. Anemia. Uncontrolled hypertension. Assessment/Plan Continued all current supportive medical care. Echocardiogram. Aspirin, Lipitor, Plavix, Metoprolol. Heparin drip per pharmacy. Lisinopril. GI prophylactics. Additional plan as per the hospital course. Plan discussed with: Patient MADELINE ALEXANDER MD May 21, 2025 15:18
[2025-05-22 02:14] LABS: INR 1.01 (0.9-1.15); Partial Thromboplastin Time 60.5 SEC (24.5-34.5); Prothrombin Time 10.7 sec (9.3-11.8)
[2025-05-22 07:43] LABS: Hematocrit 37.1 % (36.0-46.0); Hemoglobin 12.0 g/dL (12.2-16.2); Mean Corpuscular Hemoglobin 24.5 pg (28.0-32.0); Mean Corpuscular Volume 75.5 fL (80.0-100.0); Nucleated Red Blood Cells % 0.0 %
[2025-05-22 07:51] LABS: Chloride 105 mmol/L (98-107); Potassium 3.9 mmol/L (3.5-5.1); Sodium 141 mmol/L (136-145)
[2025-05-22 07:52] LABS: Anion Gap 11 (5-15); Calcium 9.9 mg/dL (8.7-10.4); Carbon Dioxide 25 mmol/L (20-31)
[2025-05-22 07:57] LABS: BUN/Creatinine Ratio 23.2 (10.0-20.0); Blood Urea Nitrogen 16 mg/dL (9-23)
[2025-05-22 07:58] LABS: Glucose 199 mg/dL (74-106); INR 1.01 (0.9-1.15); Partial Thromboplastin Time 65.0 SEC (24.5-34.5); Prothrombin Time 10.7 sec (9.3-11.8)
[2025-05-22] MEDS ORDERED: LISI-708 PO (08:38)
--- NOTE | 2025-05-22 08:40 | CONS ---
Pharmacy Clinical Information: HEPARIN DRIP, ACS PROTOCOL @0723 APTT 65- NO BOLUS, NO CHANGE 3 CONSECUTIVE THERAPEUTIC APTT LEVELS => MONITOR APTT Q24H NEXT APTT DRAW SCHEDULED @0500 PER RX PROTOCOL CONFIRMED AND READ BACK WITH MARGIE BRIONES [facility] RESIDENT May 22, 2025 08:40
--- NOTE | 2025-05-22 16:57 | DVHDSRES ---
Discharge Summary Date of Admission Resident Creating Document: CECELIA CHANDLER RESDIENT May 20, 2025 at 06:20 Date of Discharge: May 22, 2025 Labs/Diagnostic Data: Laboratory Results Test 05/22/25 07:23 05/22/25 05:39 05/21/25 08:28 05/20/25 17:30 White Blood Count 9.7 10^3/uL (4.4-10.8) Red Blood Count 4.91 10^6/uL (4.0-5.20) Hemoglobin 12.0 g/dL (12.2-16.2) Hematocrit 37.1 % (36.0-46.0) Mean Corpuscular Volume 75.5 fL (80.0-100.0) Mean Corpuscular Hemoglobin 24.5 pg (28.0-32.0) Mean Corpuscular Hemoglobin Concent 32.5 g/dL (32.0-36.0) Red Cell Distribution Width 18.2 % (11.8-14.3) Platelet Count 245 10^3/uL (140-450) Mean Platelet Volume 10.1 fL (6.9-10.8) Neutrophils (%) (Auto) 55.2 % (37.0-80.0) Lymphocytes (%) (Auto) 35.6 % (10.0-50.0) Monocytes (%) (Auto) 6.9 % (0.0-12.0) Eosinophils (%) (Auto) 1.6 % (0.0-7.0) Basophils (%) (Auto) 0.7 % (0.0-2.0) Neutrophils # (Auto) 5.4 10 ^3/uL (1.6-8.6) Lymphocytes # (Auto) 3.4 10 ^3/uL (0.4-5.4) Monocytes # (Auto) 0.7 10 ^3/uL (0-1.3) Eosinophils # (Auto) 0.2 10 ^3/uL (0-0.8) Basophils # (Auto) 0.1 10 ^3/uL (0-0.2) Nucleated Red Blood Cells 0.0 % Prothrombin Time 10.7 sec (9.3-11.8) Prothrombin Time INR 1.01 (0.9-1.15) Activated Partial Thromboplast Time 65.0 SEC (24.5-34.5) Sodium Level 141 mmol/L (136-145) Potassium Level 3.9 mmol/L (3.5-5.1) Chloride Level 105 mmol/L (98-107) Carbon Dioxide Level 25 mmol/L (20-31) Anion Gap 11 (5-15) Blood Urea Nitrogen 16 mg/dL (9-23) Creatinine 0.69 mg/dL (0.550-1.02) Glomerular Filtration Rate Calc 107 mL/min (>90) BUN/Creatinine Ratio 23.2 (10.0-20.0) Serum Glucose 199 mg/dL (74-106) Calcium Level 9.9 mg/dL (8.7-10.4) POC Glucose 199 mg/dl (70-106) Total Bilirubin 0.7 mg/dL (0.2-1.0) Aspartate Amino Transferase (AST) 15 U/L (13-40) Alanine Aminotransferase (ALT) 15 U/L (7-40) Alkaline Phosphatase 121 U/L (46-116) Total Protein 7.2 g/dL (5.7-8.2) Albumin 4.4 g/dL (3.2-4.8) Urine Color Colorless (Yellow) Urine Clarity Turbid (Clear) Urine pH 5.0 (5.0-9.0) Urine Specific [place] 1.018 (1.001-1.035) Urine Protein Negative (Negative) Urine Ketones Trace (Negative) Urine Blood Negative /uL (Negative) Urine Nitrite 1+ (Negative) Urine Bilirubin Negative (Negative) Urine Urobilinogen Normal mg/dL (Negative) Urine Leukocyte Esterase 3+ /uL (Negative) Urine RBC 2 /hpf (0 - 4) Urine Microscopic WBC 28 /HPF (0-5) Urine Squamous Epithelial Cells Few /hpf (<5) Urine Bacteria Mod /hpf (None Seen) Urine Mucus Few (None Seen) Urine Glucose 4+ mg/dL (Normal) Urine Opiates Screen Neg (NEGATIVE) Urine Fentanyl Screen Neg (NEGATIVE) Urine Barbiturates Screen Neg (NEGATIVE) Urine Phencyclidine Screen Neg (NEGATIVE) Urine Amphetamines Screen Neg (NEGATIVE) Urine Benzodiazepines Screen Neg (NEGATIVE) Urine Cocaine Screen Neg (NEGATIVE) Urine Cannabinoids Screen Neg (NEGATIVE) Test 05/20/25 08:08 05/20/25 06:19 05/20/25 05:02 Troponin I High Sensitivity 84 ng/L (</=34) Hemoglobin A1c 8.1 % A1C (<5.7) Magnesium Level 1.9 mg/dL (1.6-2.6) Triglycerides Level 181 mg/dL (< 150) Cholesterol Level 108 mg/dL (< 200) LDL Cholesterol 61 mg/dL (< 100) HDL Cholesterol 29 mg/dL (40-59) Vitamin B12 Level 315 pg/mL (211-911) Vitamin D 25-Hydroxy 37.0 ng/mL (30.0-100) Thyroid Stimulating Hormone (TSH) 3.17 uIU/mL (0.55-4.78) B-Type Natriuretic Peptide 27.48 pg/mL (0-100) Other Laboratory Tests 05/22/25 07:23 Brief Hx & Hospital Course: HISTORY OF PRESENT ILLNESS: 50-year-old female brought in by EMS with a chief complaint of chest pain starting 11:00 p.m. while she was resting in the bed. Patient reports unprovoked chest pain midsternal radiating to the left arm, pressure-type, associated with nausea, shortness of breaths with exertion, palpitations. She took an aspirin and lisinopril given her blood pressure was 150 systolic. Patient reports waking up at 2 or 3:00 a.m. with similar chest pain, her blood pressure was 190 systolic at the time. She took aspirin once at 11 and once at 3:00 a.m. and came to the hospital. She denies active chest pain at this time She saw Dr. Rowell in December and her echo was unremarkable according to her Past medical history: Diabetes mellitus type 2, CAD status post VIN lad 08/2024 Dr. Rowell Cell Tuber Hand: Dr. Rowell next appointment July 21 Home medications: Aspirin, Plavix, lisinopril, metoprolol, Mounjaro, Jardiance, metformin, statin. Reports compliance HOSPITAL COURSE: Patient was admitted at the line of NSTEMI. The patient was given aspirin, atorvastatin and put on heparin drip. Home medication including atorvastatin, lisinopril metoprolol was continued. EKGs performed, showed no significant ST or T-wave changes. Chest x-ray showed no significant intrathoracic abnormalities. Cardiology consulted, recommended medical management and on outpatient basis follow up. On 05/22, the patient was feeling better and does not have any active complaint. Discharge plan discussed with the patient and the patient discharged home. DISCHARGE PLAN: Follow up with the PCP within 1 week of the discharge. Follow up with the Cardiology on outpatient basis. Follow up with the discharge Clinic within 1 week of the discharge. Increased dose of lisinopril to 5 mg daily. Continue home rest of home meds Condition at Discharge: Good Final Diagnosis/Problems List Chest pain due to, NSTEMI, likely type 1 History of coronary artery disease, status post PCI to LAD Hypertension Diabetes type 2 with hyperglycemia Dyslipidemia Obesity Anemia Discharge Disposition: Home Discharge Instruct/Medications Diet: Cardiac 2g Na,low cholest Activity: No Restrictions, As Tolerated Follow Up/Referral: Follow up with the PCP within 1 week of the discharge. Follow up with the Cardiology on outpatient basis. Follow up with the discharge Clinic within 1 week of the discharge. Medications: Lisinopril 5 mg daily. Continue rest of home meds Scheduled Aspirin (Aspirin Low Dose), 1 TAB PO DAILY Atorvastatin Calcium (Lipitor), 1 TAB PO DAILY Clopidogrel Bisulfate (Plavix), 1 TAB PO DAILY Empagliflozin (Jardiance), 10 MG PO DAILY Ferrous Sulfate (Iron), 325 MG PO BID Lisinopril (Zestril), 2.5 MG PO DAILY Metoprolol Succinate (Metoprolol Succinate Er), 1 TAB PO DAILY Pantoprazole Sodium Sesquihydr (Pantoprazole Sodium), 40 MG PO DAILY Miscellaneous Medications Sitagliptin-Metformin Hcl (Janumet Xr), 1 TAB PO, (Reported) Tirzepatide (Mounjaro), 5 MG SC, (Reported) Discontinued Medications Lisinopril (Lisinopril), 1 TAB PO DAILY Pantoprazole Sodium Sesquihydr (Protonix), 40 MG PO DAILY Discharge Statement: "Patient was advised to return to the ER or call 911 if any headaches, dizziness, shortness of breath, chest pain, abdominal pain, bleeding, fevers, or worsening of medical condition. Patient was counseled about treatment plan, medications, possible side effects, patientverbalized understanding. All questions were answered to the best of my ability. This discharge took greater then 30 minutes in planning, reviewing documentation, counseling the patient, and discussing with other team members." ASSESSMENT ASSESSMENT Assessment NSTEMI Visit Coding STANDARD RES Billing Provider: TERRI TINOCO MD Date of Service if different f: May 22, 2025 Common Visit Codes: [id number] DISCH DAY >30min CECELIA CHANDLER RESDIKATHY May 22, 2025 16:57
--- NOTE | 2025-05-23 01:08 | DVHPN2 ---
Progress Note - Dictate Date Seen: May 22, 2025 Medical Necessity Reason Pt with a Central, PICC or Fol: No Subjective Patient was seen and evaluated in follow-up. Patient has no new complaints at this time. Patient denies any cardiac symptoms. Patient is cardiac stable for discharge. Telemetry reviewed. vital signs Vital Sign Date Time Temp Pulse Resp B/P (MAP) Pulse Ox O2 Delivery O2 Flow Rate FiO2 05/22/25 10:00 97 Room Air* 0 21 05/22/25 09:56 108 120/77 05/22/25 09:00 96.7 16 96.7 Total Intake and Output 05/21/25 05/21/25 05/22/25 15:00 23:00 07:00 Intake Total 775 ml 700 ml Balance 775 ml 700 ml objective GENERAL: Alert and oriented x 3. No acute distress. EYES: PERRL, EOMI. Anicteric. HENT: Moist mucous membranes. LUNGS: Clear to auscultation bilaterally. CARDIOVASCULAR: Regular rate and rhythm. ABDOMEN: Soft, non-tender and non-distended. EXTREMITIES: No edema. NEUROLOGIC: No focal neurological deficits. SKIN: Warm, dry. laboratory and microbiology Laboratory Tests 05/22/25 07:23 Test 05/22/25 07:23 Range/Units Serum Glucose 199 H 74-106 mg/dL Problem List Chest pain. NSTEMI. Sinus tachycardia. History of CAD status post 1 VIN LAD 08/2024. Diabetes mellitus type 2. Anemia. Uncontrolled hypertension. Assessment/Plan Continued all current supportive medical care. Echocardiogram. Aspirin, Plavix, Metoprolol. Heparin drip per pharmacy. Lisinopril. GI prophylactics. Additional plan as per the hospital course. Plan discussed with: Patient MADELINE ALEXANDER MD May 22, 2025 14:04
== END 2025-05-22 12:16 | disposition home or self-care (01) | DRG 190 ==
LOC: EDBD 04:44 → ER 04:44 → OVERFLOW 06:20 → TELE-CENTR 17:46
PROVIDERS: ADMIT Student in an Organized Health Care Education/Training Program; ATTEND Student in an Organized Health Care Education/Training Program
DX: I21.4 Non-ST elevation (NSTEMI) myocardial infarction (principal); E11.65 Type 2 diabetes mellitus with hyperglycemia; D64.9 Anemia, unspecified; E66.9 Obesity, unspecified; E78.5 Hyperlipidemia, unspecified; I10 Essential (primary) hypertension; I25.10 Atherosclerotic heart disease of native coronary artery without angina pectoris; Z88.0 Allergy status to penicillin; Z95.5 Presence of coronary angioplasty implant and graft; I25.2 Old myocardial infarction; Z90.49 Acquired absence of other specified parts of digestive tract; Z82.3 Family history of stroke; Z68.33 Body mass index [BMI] 33.0-33.9, adult
CPT/HCPCS: 36415; 71045; 80048; 80053; 80061; 80307; 81001; 82306; 82607; 82962; 83036; 83735; 83880; 84443; 84484; 85025; 85610; 85730; 93005; 93306; 94640; 96365; 96375; 99291; G0378; J1815; J2470